=== PATIENT | female | born 1960 | race Caucasian/White ===

== ENCOUNTER → 2017-06-01 | Outpatient (CLI) | payer BC ==
[~2017-06-01] MED LIST: ABILIFY15 MG PO; ABILIFY5 MG PO; ADVAIR 250-501 EACH INH; ASPIRIN81 MG OP; BONIVA150 MG PO; CALCIUM 1,0001 EACH PO; CARAFATE1 GM PO; CINNAMON500 MG PO; CLARITIN10 MG PO; CYCLOBENZAPRINE5 MG PO; CYMBALTA60 MG PO; DEPAKOTE ER500 MG PO; DEPAKOTE250 MG PO; ELAVIL25 MG PO; FENOFIBRATE145 MG PO; FLAGYL250 MG PO; FUROSEMIDE80 MG PO; GABAPENTIN600 MG PO; GARLIC500 M1 PO; GLIPIZIDE ER2.5 MG PO; GRALISE600 MG PO; HUMALOG MI100 UNIT/4 SQ; HUMALOG100 UNIT/1 SC; HUMALOG100 UNITS/ SC; HUMALOG100 UNITS/ SQ; INVOKANA PO; KEFLEX500 MG PO; LANTUS 3ML100 UNITS/ SQ; LEVAQUIN500 MG PO; LEVEMIR100 UNIT/1 SQ; LEVOTHYROXINE25 MCG PO; LINZESS PO; MAXALT10 MG PO; MELATONIN300 MCG PO; METFORMIN HCL500 MG PO; MULTI-VITAMIN1 EACH PO; NEURONTIN300 MG PO; NORCO 10-325 T1 EACH PO; ONGLYZA5 MG PO; PANTOPRAZOLE SO40 MG PO; PRAVACHOL40 MG PO; PREMARIN0.625 MG PO; PROMETHAZINE HC25 M1 PO; PROPRANOLOL HCL10 MG PO; RELPAX40 MG PO; RIZATRIPTAN PO; SIMVASTATIN20 MG PO; SONATA10 MG PO; SPIRIVA18 MCG; SPIRONOLACTONE100 MG PO; SPIRONOLACTONE50 MG PO; TIZANIDINE HCL4 MG PO; TRAZODONE HCL150 MG PO; TRAZODONE HCL50 MG PO; VICODIN ES TAB1 EACH PO; VITAMIN E1000 UNI2 PO; WELLBUTRIN SR150 MG PO; WELLBUTRIN XL300 MG PO; WELLBUTRIN75 MG PO; Z.0.ANTIVERT12.5 MG PO; Z.0.BONIVA150 MG PO; Z.0.DEPAKOTE500 MG PO; Z.0.LASIX40 MG PO; Z.0.LEXAPRO20 MG PO; Z.0.LIPITOR40 MG PO; Z.0.NEURONTIN300 MG PO; Z.0.NEXIUM40 MG PO; Z.0.PREMARIN0.9 MG PO; Z.0.ULTRAM50 MG PO; Z.0.ZANAFLEX4 M1 PO; Z.1.KOMBIGLYZE XR1 E PO; ZOCOR20 MG PO; ZOFRAN ODT8 MG PO; [UNRECOGNIZED DRUG - OTHER] NS; [UNRECOGNIZED DRUG - OTHER] PO; [UNRECOGNIZED DRUG - OTHER] PO
--- NOTE | 2017-06-01 10:48 | Diagnostic Imaging Report ---
Examination: MRI SPINE LUMBAR WITHOUT CONTRAST History: Right groin area pain shooting down the right thigh and down the front of the right leg for the past 4-6 weeks. Comparison studies: X-ray of the lumbar spine performed November 09, 2014. Technique: Sagittal, coronal and axial T2 , sagittal T1 and STIR; axial spin density oblique. Findings: Number of lumbar vertebral bodies: Five. Alignment: Normal lordosis. No scoliosis. Soft tissues: No T2 hyperintense inflammatory changes. Posterior paraspinal soft tissues and muscles: No abnormality. Lower thoracic cord: Normal in signal and morphology. The tip of the conus is at T12-L1. Cauda equina: No masses. No arachnoiditis. Vertebrae: No fractures, infection or neoplasm. Degenerative changes: L1-L2: No abnormalities. L2-L3: No abnormalities. L3-L4: Mild bilateral facet arthropathy. No foraminal or canal stenosis. L4-L5: Diffuse systolic and mild bilateral facet arthropathy result in minimal canal stenosis. No foraminal stenosis. L5-S1: Mild bilateral facet arthropathy. No foraminal or canal stenosis. IMPRESSION: 1. Degenerative changes at L3-L4 through L5-S1 with minimal canal stenosis at L4-L5. 2. No foraminal narrowing. Signed by: Dr. Amara Painter M.D. on 06/01/2017 10:45 AM
== END ==
LOC: MRI 07:45
PROVIDERS: ATTEND Family Medicine
DX: M54.5 Low back pain (principal)
CPT/HCPCS: 72148

== ENCOUNTER 2017-09-19 19:39 | Emergency (ER) | payer MEDICARE ==
[~2017-09-19] VITALS: Ht 160 cm; Wt 85.3 kg
--- OUTSIDE RECORDS SUMMARY | 2017-09-19 19:43 | XMS REPORT ---
Author Author [facility] Address Unknown Phone Unavailable Care Team Providers Care Museum Educator Name Role Phone EUNICE SOLIMAN Unavailable Unavailable BRII SOLIMAN Unavailable Unavailable JONNY MOROCHO Unavailable Unavailable Problems This patient has no known problems. Allergies, Adverse Reactions, Alerts This patient has no known allergies or adverse reactions. Medications This patient has no known medications. Results Test Description Test Time Test Comments Text Results Atomic Results Result Comments MRI SPINE LUMBAR WO [place] [address] Patient Name: ROGER MOCTEZUMA V MR #: [id number] : 1960 Age/Sex: 57/F Req #: [id number] Adm Physician: Ordered by: EUNICE SOLIMAN DO Report #: [id number] Location: MRI Room/Bed: Procedure: [id number] MRI/MRI SPINE LUMBAR WO Exam Date: 06/01/17 Exam Time: 0820 REPORT STATUS: Signed Examination: MRI SPINE LUMBAR WITHOUT CONTRAST History: Right groin area pain shooting down the right thigh and down the front of the right leg for the past 4-6 weeks. Comparison studies: X-ray of the lumbar spine performed November 09, 2014. Technique: Sagittal, coronal and axial T2 , sagittal T1 and STIR; axial spin density oblique. Findings: Number of lumbar vertebral bodies: Five. Alignment: Normal lordosis. No scoliosis. Soft tissues: No T2 hyperintense inflammatory changes. Posterior paraspinal soft tissues and muscles: No abnormality. Lower thoracic cord: Normal in signal and morphology. The tip of the conus is at T12-L1. Cauda equina: No masses. No arachnoiditis. Vertebrae: No fractures, infection or neoplasm. Degenerative changes: L1-L2: No abnormalities. L2-L3: No abnormalities. L3-L4: Mild bilateral facet arthropathy. No foraminal or canal stenosis. L4-L5: Diffuse systolic and mild bilateral facet arthropathy result in minimal canal stenosis. No foraminal stenosis. L5-S1: Mild bilateral facet arthropathy. No foraminal or canal stenosis. IMPRESSION: 1. Degenerative changes at L3-L4 through L5-S1 with minimal canal stenosis at L4- L5. 2. No foraminal narrowing. Signed by: Dr. Amara Painter M.D. on 06/01/2017 10:45 AM Dictated By: AMARA FLORES MD 1045 Transcribed By: CALEB on 06/01/17 1045 COPY TO: EUNICE SOLIMAN DO CT ABDOMEN/PELVIS W [place] [address] Patient Name: ROGER MOCTEZUMA V MR #: [id number] : 1960 Age/Sex: 57/F Req #: [id number] Adm Physician: Ordered by: EUNICE SOLIMAN DO Report #: [id number] Location: CT Room/Bed: Procedure: [id number] CT/CT ABDOMEN/PELVIS W Exam Date: 05/17/17 Exam Time : 0940 REPORT STATUS: Signed PROCEDURE: CT ABDOMEN AND PELVIS WITH CONTRAST TECHNIQUE: The abdomen and pelvis were scanned utilizing a multidetector helical scanner from the diaphragm to the lesser trochanter after the IV administration of 100 cc of Isovue 370 and the oral administration of Gastroview and water. Coronal and sagittal multiplanar reformations were obtained. COMPARISON: None. INDICATIONS: RIGHT LOWER QUAD PAIN FINDINGS: LOWER THORAX: Normal. HEPATOBILIARY: No focal hepatic lesions. No biliary ductal dilatation. Cholecystectomy. SPLEEN: No splenomegaly. PANCREAS: No focal masses or ductal dilatation. ADRENALS: No adrenal nodules. KIDNEYS/URETERS: No hydronephrosis, stones, or solid mass lesions. PELVIC ORGANS/BLADDER: Unremarkable. PERITONEUM / RETROPERITONEUM: No free air or fluid. LYMPH NODES: No lymphadenopathy. VESSELS: Unremarkable. GI TRACT: No distention or wall thickening. No appendix is visualized. Moderate amount of retained feces in the intraluminal evaluation of the colon. BONES AND SOFT TISSUES: Unremarkable. Degenerative changes of the lumbar spine. IMPRESSION: No acute abnormality of the abdomen and pelvis. Dictated by : Damaris Myles M.D. on 05/17/2017 at 12:44 Electronically approved by: Damaris Myles M.D. on 05/17/2017 at 12:44 Dictated By: DAMARIS MYLES MD 1244 Transcribed By: PANTERA on 05/17/17 1244 COPY TO: EUNICE SOLIMAN DO MRI KNEE LEFT WO [place] [address] Patient Name: ROGER MOCTEZUMA V MR #: [id number] : 1960 Age/Sex: 56/F Req #: [id number] Adm Physician: Ordered by: SOLIMAN ANDREW DO Report #: [id number] Location: MRI Room/Bed: Procedure: [id number] MRI/MRI KNEE LEFT WO Exam Date: 02/24/17 Exam Time: 910 REPORT STATUS: Signed Left knee MRI without contrast. History : Knee pain. Fall. Trauma. Anterior cruciate ligament tear. Comparison: None. Technique: Multiplanar multi-sequence MRI of the knee without contrast. Findings: Medial compartment: No meniscal tear, cartilage abnormality, or MCL tear. Lateral compartment: No meniscal tear or cartilage abnormality. The LCL complex is normal. There is mild bone marrow edema in the lateral tibial plateau likely due to a contusion. There is a nondisplaced fracture through the proximal fibula with associated bone marrow edema and adjacent soft tissue edema. This is best seen on coronal series 5 image 16 and sagittal series 3 image 9. Intercondylar notch: The ACL and PCL are intact. Patellofemoral compartment: No chondromalacia or patellar dislocation. Extensor mechanism: The quadriceps and patellar tendons are normal. Other findings: There is a joint effusion and synovitis. There is no acute fracture, subluxation or avascular necrosis. IMPRESSION: Nondisplaced fracture through the proximal fibula with associated bone marrow edema and adjacent soft tissue edema. There is mild bone marrow edema in the lateral tibial plateau likely due to a contusion. No meniscal tear, collateral ligament tear or cruciate ligament tear. Signed by: Dr. Lj Aponte M.D. on 02/24/2017 10:38 AM Dictated By: LJ APONTE MD, MD 1038 Transcribed By: CALEB on 02/24/17 1038 COPY TO: BRII SOLIMAN DO CT PELVIS WO [place] [address] Patient Name: ROGER MOCTEZUMA V MR #: [id number] : 1960 Age/Sex: 56/F Req #: [id number] Adm Physician: Ordered by: JONNY MOROCHO MD Report #: [id number] Location: CT Room/Bed: Procedure: [id number] CT/ CT PELVIS WO Exam Date: 01/27/17 Exam Time: 1327 REPORT STATUS: Signed PROCEDURE: CT PELVIS WITHOUT CONTRAST COMPARISON: CT abdomen and pelvis 02/24/2016. INDICATIONS: LOWER BACK, SI JOINT PAIN TECHNIQUE: Multidetector imaging of was performed of the pelvis from the pelvic inlet to the pubic symphysis. No intravenous contrast was administered. Coronal and sagittal multiplanar reformations were obtained. FINDINGS: The visualized portions of the small bowel colon are unremarkable. No appendix is visualized. Moderate amount of retained feces limits intraluminal evaluation of the colon. The urinary bladder is normal. Hysterectomy. No ovaries are visualized. Minimal atherosclerotic calcifications within the iliac distribution. The No free fluid or drainable fluid collection. No pneumoperitoneum. Minimal degenerative changes of the lower lumbar spine. CONCLUSION: No acute abnormality of the pelvis. Dictated by: Damaris Myles M.D. on 01/27/2017 at 15:05 Electronically approved by: Damaris Myles M.D. on 01/27/2017 at 15:05 Dictated By: DAMARIS MYLES MD 1505 Transcribed By: PANTERA on 01/27/17 1505 COPY TO: JONNY MOROCHO MD
[2017-09-19] MEDS ORDERED: KETOROLAC TROMETHAMINE 30 MG/ML VIAL IV STA (19:49)
[2017-09-19] MEDS ORDERED: DIPHENHYDRAMINE HCL INJ 50 MG/ML VIAL IV ONE (20:00)
[2017-09-19] MEDS ORDERED: KETOROLAC TROMETHAMINE 30 MG/ML VIAL IV SCH (20:00)
[2017-09-19] MEDS ORDERED: METOCLOPRAMIDE HCL 10 MG/2ML VIAL IV SCH (20:00)
[2017-09-19] MEDS ORDERED: SODIUM CHLORIDE 0.9% 1000ML 1,000 ML IV ONE (20:00)
[2017-09-19] MEDS ORDERED: ACETAMIN/BUTALBITAL/CAFFEINE TAB PO ONE (20:30)
== END 2017-09-19 21:52 | disposition home or self-care (01) ==
LOC: ER 19:39
DX: G43.909 Migraine, unspecified, not intractable, without status migrainosus (principal); E11.9 Type 2 diabetes mellitus without complications; E03.9 Hypothyroidism, unspecified; E78.5 Hyperlipidemia, unspecified; F32.9 Major depressive disorder, single episode, unspecified
CPT/HCPCS: 36415; 82948; 99283; J1200; J1885; J2765; J7030

== ENCOUNTER → 2017-11-12 | Outpatient (CLI) | payer MEDICARE ==
--- NOTE | 2017-11-12 08:19 | Diagnostic Imaging Report ---
PROCEDURE:US LIVER COMPARISON:CT abdomen and pelvis 05/17/2017. INDICATIONS:Fatty Liver TECHNIQUE: Salomon-scale and color doppler transverse and longitudinal images of the right upper quadrant of the abdomen were obtained. FINDINGS: Liver: 18.2 cm in right mid-clavicular line. Normal parenchymal echogenicity. No masses. Main portal vein: 1.2 cm in caliber. Hepatopedal flow. Gallbladder: Surgically removed. Common Bile Duct: 0.6 cm in caliber Right kidney: 10.8 cm in length. Normal renal cortical echogenicity. No solid masses or hydronephrosis. Pancreas: Poorly visualized secondary to overlying bowel gas. Inferior vena cava: Patent Aorta: Non-aneurysmal Ascites: None in the right upper quadrant of the abdomen. CONCLUSION: Hepatomegaly with normal hepatic parenchymal echogenicity. Status post cholecystectomy. Dictated by: Zander Lindsey M.D. on 11/12/2017 at 8:22 Electronically approved by: Zander Lindsey M.D. on 11/12/2017 at 8:22
--- NOTE | 2017-11-15 11:26 | Diagnostic Imaging Report ---
TECHNIQUE: Magnetic resonance imaging of the RIGHT HIP was performed WITHOUT injected contrast. HISTORY: Osteoarthritis COMPARISON: Bone windows from CT the pelvis February 24, 2016 FINDINGS: Bone: No focal or infiltrative bone marrow replacing abnormality. Evolving chronic avascular necrosis of the right femoral head with associated mild subchondral collapse, mild bone marrow edema, and secondary degenerative changes. A 1.6 cm cyst at the lateral femoral head neck junction. Femoroacetabular Joint: Acetabular labrum: Mild to moderate degenerative changes of the anterosuperior labrum. Articular Cartilage: Low to intermediate grade erosion of the acetabular weightbearing cartilage. Muscle and tendons: The visualized tendons appear intact. Soft tissues: Otherwise, unremarkable. Other: Moderate degenerative changes of the pubic symphysis. 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 Signed by: Dr. Lan Thorne D.O., M.M.M. on 11/15/2017 11:23 AM
== END ==
LOC: US 07:27
DX: M16.11 Unilateral primary osteoarthritis, right hip (principal); K76.0 Fatty (change of) liver, not elsewhere classified
CPT/HCPCS: 76705

== ENCOUNTER 2017-12-27 06:22 | Inpatient (IN) | payer MEDICARE ==
[2017-12-24 11:49] LABS: ANION GAP 15.5 mmol/L (8-16); CALCIUM 10.3 mg/dL (8.4-10.2); CREATININE, SERUM 0.98 mg/dL (0.57-1.11); POTASSIUM 4.5 mmol/L (3.5-5.1)
[2017-12-24 11:50] LABS: HEMATOCRIT 38.9 % (34.2-44.1); HEMOGLOBIN 12.2 g/dL (12.0-16.0); MEAN CORPUSCULAR HEMOGLOBIN 30.7 pg (28-32); MEAN CORPUSCULAR VOLUME 97.7 fL (81-99); RED BLOOD COUNT 3.98 x10e6/uL (3.6-5.1)
[2017-12-24 11:51] LABS: BASOPHILS % 0.5 % (0.0-1.0); EOSINOPHILS # (AUTO) 0.1 (0.0-0.4); EOSINOPHILS % 1.9 % (0.0-6.0); LYMPHOCYTES # (AUTO) 2.2 (1.0-3.2); LYMPHOCYTES % 33.9 % (18.0-39.1); MEAN CORPUSCULAR HGB CONC 31.4 g/dL (31-35); MONOCYTES # (AUTO) 0.4 (0.2-0.8); MONOCYTES % 6.9 % (4.4-11.3); NEUTROPHILS # (AUTO) 3.6 (2.1-6.9); NEUTROPHILS % 56.2 % (38.7-80.0); PLATELET COUNT 307 x10e3/uL (140-360)
[~2017-12-27] VITALS: Ht 160 cm; Wt 89.8 kg
[~2017-12-27 06:22] MED LIST changes: +CALCIUM MG ZINC PO; +FERROUS SULFAT324 MG PO; +GARLIC1000 MG PO; +MELATONIN3 MG PO; +SENNA8.6 MG PO; +VITAMIN B-125000 MCG PEG; +VITAMIN E400 UNIT PO
[2017-12-27] MEDS ORDERED: MUPIROCIN 2% OINT 22 GM TUBE ONE ×2 (07:21→07:51)
[2017-12-27] MEDS ORDERED: TRANEXAMIC ACID 1,000 MG/10 ML ML ONE ×2 (07:21→07:51)
[2017-12-27] MEDS ORDERED: BACITRACIN 50,000 UNIT VIAL ONE ×2 (07:21→07:52)
[2017-12-27] MEDS ORDERED: ROPIVACAINE 246.25 MG, EPINEPHRINE HCL 1:1000 0.5 MG, CLONIDINE HCL 0.08 MG, KETOROLAC ... INJ ONE ×5 (07:30)
[2017-12-27] MEDS ORDERED: DEXAMETHASONE SOD PHOS 10 MG/1 ML VIAL ONE (07:38)
[2017-12-27] MEDS ORDERED: CEFAZOLIN SOD 2 GM/D5W 50ML 50 ML IV ONE (07:38)
[2017-12-27] MEDS ORDERED: GABAPENTIN 300 MG CAP ONE (07:38)
[2017-12-27] MEDS ORDERED: CELECOXIB 200 MG CAP ONE (07:38)
[2017-12-27] MEDS ORDERED: INSULIN REGULAR, HUMAN 100 UNIT/1 ML 3ML VIAL ONE (07:59)
[2017-12-27] MEDS ORDERED: MORPHINE SULFATE/PF 1 MG/1 ML 10ML VIAL ONE (08:10)
[2017-12-27] MEDS ORDERED: BUPIVACAINE 7.5MG/ML /DEXTROSE 82.5MG/ML 2 ML AMP INJ ONE (08:11)
[2017-12-27] MEDS ORDERED: PROMETHAZINE HCL (IM) 25 MG/ML VIAL IM PRN (09:45)
[2017-12-27] MEDS ORDERED: DOCUSATE SODIUM 100 MG CAP PO PRN (09:45)
[2017-12-27] MEDS ORDERED: KETOROLAC TROMETHAMINE 30 MG/ML VIAL IV PRN (09:45)
[2017-12-27] MEDS ORDERED: ONDANSETRON HCL INJ 2 MG/ML VIAL IV PRN (09:45)
[2017-12-27] MEDS ORDERED: ACETAMINOPHEN 650 MG SUPP PR PRN (09:45)
--- NOTE | 2017-12-27 10:05 | Diagnostic Imaging Report ---
PROCEDURE:X-RAY PELVIS, AP VIEW COMPARISON:None. INDICATIONS:POST OP RIGHT HIP TODAY FINDINGS: Status post right total hip arthroplasty with acetabular and femoral components in anatomic alignment. Right thigh kaleigh and air adjacent to the operative site related to same day surgery. No evidence of fracture or dislocation. The bones are well-mineralized. AP radiograph of the pelvis demonstrates moderate left hip, pubic symphysis, lower lumbar spine, and bilateral sacroiliac joint degenerative changes. The soft-tissues are unremarkable. CONCLUSION: Status post right total hip arthroplasty with expected post operative findings. Dictated by: BRIANDA BOONE M.D. on 12/27/2017 at 10:09 Electronically approved by: BRIANDA BOONE M.D. on 12/27/2017 at 10:09
[2017-12-27] MEDS: SUCRALFATE 1 GM TAB PO SCH ×3 (12:09→21:58)
[2017-12-27] MEDS: SODIUM CHLORIDE 0.9% 1000ML 1,000 ML IV SCH ×2 (12:09→19:31)
[2017-12-27] MEDS: ACETAMINOPHEN 1000 MG/100 ML IV SCH ×2 (12:09→17:19)
[2017-12-27] MEDS: INSULIN LISPRO 100 UNIT/1 ML 3ML VIAL SQ SCH ×2 (12:09→17:07)
[2017-12-27 12:13] VITALS: BP 103/50
[2017-12-27] MEDS: DIPHENHYDRAMINE HCL INJ 50 MG/ML VIAL IM/IV PRN ×2 (12:17→13:45)
[2017-12-27 12:18] VITALS: BP 103/50
--- NOTE | 2017-12-27 12:56 | Operative Report ---
DATE OF PROCEDURE: December 27, 2017 DIRECTOR NURSING SERVICE: Richmond Mitchell PA-C The patient was brought to the operating room for induction of anesthesia. Throughout this case, my PA's assistance was necessary for retraction of soft tissue and positioning of the extremity. This allows for efficient and technically successful execution of the operation and is considered medically necessary. PREOPERATIVE DIAGNOSIS: Avascular necrosis, right hip. POSTOPERATIVE DIAGNOSIS: Avascular necrosis, right hip. PROCEDURE: Right total hip arthroplasty. INDICATIONS: The patient is a 57-year-old lady with osteonecrosis of her right femoral head. She has evidence of subchondral collapse. She has complaints of severe pain. She would like to proceed with a right total hip replacement. The risks and benefits have been discussed. She states she understands and wishes to proceed. DESCRIPTION OF PROCEDURE: The patient was brought to the operating room and given a spinal anesthetic. She received prophylactic antibiotics and tranexamic acid in the holding area. She was positioned in the left lateral decubitus position. Her right hip was prepped and draped in a sterile manner. A preoperative time out was performed. A posterior approach was made to the right hip. Abundant subcutaneous adipose tissue was encountered. Hemostasis was obtained with electrocautery. A deep Charnley retractor was placed. The posterior capsule was carefully exposed and released. Additional hemostasis was obtained with electrocautery. The hip was dislocated, and an oscillating saw was used to resect the femoral head. Subchondral collapse was noted. Acetabular retractors were carefully placed. The true floor of the acetabulum was established with a 46-mm reamer. Labral remnants had been excised. The socket was sequentially reamed up to 51 mm. This accomplished bleeding hemispherical cancellous bone. A Maile [employer]omet OsseoTi socket with a 52 mm outer diameter was chosen. The hip was thoroughly irrigated with a shower-tip pulsatile lavage prior to impacting the socket. Nice secure fixation was obtained. Fixation was augmented with a single 25-mm cancellous screw placed into the ilium. A highly crosslinked polyethylene liner with a 36 mm inner diameter was then seated into place. Care was taken to make sure that there was no evidence of soft-tissue interposition. A portion of a 100-mL premixed pericapsular RUSSELL injection was placed around the capsular tissue. The socket was packed with moistly soaked lap sponge, and attention was directed towards the proximal femur. A box-cutting osteotome and taper pin reamer were used to establish entry into the femoral canal. The Taperloc broaches were then impacted. A size 12 stem had good canal fill and rotational stability for trial reductions. A standard 36-mm head with a standard neck provided excellent stability, faith of limb length and soft-tissue balancing. The trial implants were removed. The hip was further irrigated with a pulsatile lavage. The remainder of the pericapsular injection was placed. The implants were seated, and a final reduction was performed. A standard 36-mm head and standard neck were seated onto the stem. The stem was clean and dry at the time of seating. The posterior capsule was repaired with 2 interrupted #2 Ethibond stitches in a [id number] fashion. The gluteal fascia and tensor fascia were closed with #2 Ethibond. The skin was closed with subcuticular Vicryl and kaleigh. Estimated blood loss was 75 mL. At the end of the procedure, all needle and sponge counts were correct. Job#: [id number]
[2017-12-27] MEDS ORDERED: CEFAZOLIN SOD 1 GM/D5W 50ML 50 ML IV SCH (14:00)
[2017-12-27] MEDS ORDERED: GABAPENTIN 400 MG PO SCH (15:00)
[2017-12-27] MEDS: GABAPENTIN 400 MG CAP PO SCH ×2 (15:15→21:58)
[2017-12-27 16:31] VITALS: BP 123/59
[2017-12-27] MEDS: CEFAZOLIN SOD 1 GM VIAL IV SCH (16:41)
[2017-12-27] MEDS ORDERED: NON-FORMULARY MEDICATION (Duloxetine Hcl (Cymbalta) 60 MG) PO SCH (17:00)
[2017-12-27] MEDS ORDERED: CELECOXIB 100 MG CAP PO SCH (17:00)
[2017-12-27] MEDS: METFORMIN HCL 500 MG TAB PO SCH (17:19)
[2017-12-27] MEDS: DULOXETINE HCL 30 MG DELAYED RELEASE PO SCH (17:19)
[2017-12-27] MEDS: ASPIRIN 325 MG TAB PO SCH (17:19)
[2017-12-27] MEDS: CELECOXIB 200 MG CAP PO SCH (17:19)
[2017-12-27] MEDS ORDERED: PROPOFOL IV EMULSION 10 MG/ML 20 ML VIAL ONE (17:48)
[2017-12-27] MEDS ORDERED: LIDOCAINE HCL 2% LOCAL INJ 5 ML SDV VIAL INJ ONE (17:48)
[2017-12-27] MEDS ORDERED: EPHEDRINE SULFATE INJ 50 MG/10 ML SYR ONE (17:48)
[2017-12-27] MEDS ORDERED: ONDANSETRON HCL INJ 2 MG/ML VIAL ONE (17:48)
[2017-12-27] MEDS ORDERED: FENTANYL CITRATE/PF 100MCG/2 ML INJ ONE (17:58)
[2017-12-27] MEDS ORDERED: MIDAZOLAM HCL 2 MG/2 ML VIAL ONE (17:58)
[2017-12-27] MEDS ORDERED: HYDROXYZINE HCL 25 MG TAB PO PRN (18:15)
[2017-12-27 20:31] VITALS: BP 101/49
[2017-12-27] MEDS ORDERED: SIMVASTATIN 20 MG TAB PO SCH (21:00)
[2017-12-27] MEDS ORDERED: SENNOSIDES 8.6 MG TAB PO SCH (21:00)
[2017-12-27] MEDS ORDERED: ZOLPIDEM TARTRATE 5 MG TAB PO PRN (21:00)
[2017-12-27] MEDS ORDERED: FENOFIBRATE 145 MG TAB PO SCH (21:00)
[2017-12-27] MEDS ORDERED: TRAZODONE HCL 50 MG TAB PO SCH (21:00)
[2017-12-27] MEDS ORDERED: NON-FORMULARY MEDICATION (Insulin Detemir (Levemir) 20 UNITS) SQ SCH (21:00)
[2017-12-27] MEDS ORDERED: INSULIN DETEMIR 100 UNIT/ML PEN SQ SCH (21:00)
[2017-12-27] MEDS ORDERED: TRAZODONE HCL 300 MG PO SCH (21:00)
[2017-12-27] MEDS ORDERED: MELATONIN 3 MG TAB PO SCH (21:00)
[2017-12-27] MEDS ORDERED: MELATONIN 5 MG TABLET PO SCH (21:00)
[2017-12-27] MEDS ORDERED: SIMVASTATIN 40 MG TAB PO SCH (21:00)
[2017-12-27] MEDS ORDERED: DIVALPROEX SODIUM 250 MG TAB...DR PO SCH (21:00)
[2017-12-28] VITALS: BP 97/51
[2017-12-28] MEDS: CEFAZOLIN SOD 1 GM VIAL IV SCH ×2 (00:38→08:29)
[2017-12-28 04:00] VITALS: BP 111/56
[2017-12-28] MEDS: HYDROCODONE/APAP 7.5MG-325MG 1 EA TAB PO PRN ×2 (05:14→12:39)
[2017-12-28] MEDS: ACETAMINOPHEN 1000 MG/100 ML IV SCH ×2 (05:14)
[2017-12-28] MEDS: SODIUM CHLORIDE 0.9% 1000ML 1,000 ML IV SCH ×2 (05:31→15:27)
[2017-12-28 05:51] LABS: HEMATOCRIT 32.5 % (34.2-44.1); HEMOGLOBIN 10.2 g/dL (12.0-16.0)
[2017-12-28] MEDS ORDERED: LEVOTHYROXINE SODIUM 25 MCG TABLET PO SCH ×2 (06:00→09:00)
[2017-12-28] MEDS ORDERED: PANTOPRAZOLE SOD 40 MG TABEC PO SCH (07:30)
[2017-12-28] MEDS: SUCRALFATE 1 GM TAB PO SCH ×2 (07:57→11:44)
[2017-12-28 08:27] VITALS: BP 105/55
[2017-12-28] MEDS: CELECOXIB 200 MG CAP PO SCH (08:29)
[2017-12-28] MEDS: DULOXETINE HCL 30 MG DELAYED RELEASE PO SCH (08:29)
[2017-12-28] MEDS: METFORMIN HCL 500 MG TAB PO SCH (08:29)
[2017-12-28] MEDS: ASPIRIN 325 MG TAB PO SCH ×2 (08:29→15:57)
[2017-12-28] MEDS: GABAPENTIN 400 MG CAP PO SCH ×2 (08:29→14:54)
[2017-12-28] MEDS: HYDROCODONE/APAP 5MG-325MG TAB PO PRN ×2 (08:29→15:57)
[2017-12-28] MEDS: INSULIN LISPRO 100 UNIT/1 ML 3ML VIAL SQ SCH ×2 (08:32→11:19)
[2017-12-28 08:36] VITALS: BP 105/55
[2017-12-28] MEDS ORDERED: FUROSEMIDE 40 MG TAB PO SCH (09:00)
[2017-12-28] MEDS ORDERED: NON-FORMULARY MEDICATION (Aripiprazole (Abilify) 15 MG) PO SCH (09:00)
[2017-12-28] MEDS ORDERED: NON-FORMULARY MEDICATION (Furosemide 40 MG) PO SCH (09:00)
[2017-12-28] MEDS ORDERED: ARIPIPRAZOLE 5 MG TABLET PO SCH (09:00)
[2017-12-28] MEDS ORDERED: BUPROPION HCL SR 150 MG TAB PO SCH (09:00)
[2017-12-28] MEDS ORDERED: SPIRONOLACTONE 25 MG TAB PO SCH (09:00)
[2017-12-28] MEDS ORDERED: MULTIVITAMINS/MINERALS TAB PO SCH (09:00)
[2017-12-28] MEDS ORDERED: NON-FORMULARY MEDICATION (Spironolactone 100 MG) PO SCH (09:00)
[2017-12-28] MEDS ORDERED: ACETAMINOPHEN 1000 MG/100 ML IV PRN (09:45)
[2017-12-28 12:24] VITALS: BP 111/53
== END 2017-12-28 15:58 | disposition home health service (06) | DRG 470 ==
LOC: OR 06:22 → PACU V 09:33 → MED/SURG 10:43
PROVIDERS: ADMIT Specialist; ATTEND Specialist
PROC: 0SR90J9 Replacement of Right Hip Joint with Synthetic Substitute, Cemented, Open Approach (ICD-10-PCS; principal; 2017-12-27 09:00)
DX: M87.351 Other secondary osteonecrosis, right femur (principal); E11.9 Type 2 diabetes mellitus without complications; Z87.891 Personal history of nicotine dependence; L29.9 Pruritus, unspecified; D64.9 Anemia, unspecified
CPT/HCPCS: 36415; 72170; 80048; 82948; 85014; 85018; 85025; 86850; 86900; 86920; 93005; J0171; J0690; J1100; J1200; J1885; J2001; J2250; J2405; J2795; J3410; J7030

== ENCOUNTER 2017-12-30 07:13 | Emergency (ER) | payer MEDICARE ==
[~2017-12-30] VITALS: Ht 160 cm; Wt 89.8 kg
[2017-12-30] MEDS ORDERED: KETOROLAC TROMETHAMINE 30 MG/ML VIAL IV STA (07:40)
[2017-12-30] MEDS ORDERED: ONDANSETRON HCL INJ 2 MG/ML VIAL IV STA (07:40)
[2017-12-30] MEDS ORDERED: SODIUM CHLORIDE 0.9% 1000ML 1,000 ML IV ONE (07:45)
[2017-12-30] MEDS ORDERED: MORPHINE SULFATE INJ 4 MG/ML INJ IV ONE (07:45)
[2017-12-30 08:43] LABS: BASOPHILS % 0.5 % (0.0-1.0); EOSINOPHILS # (AUTO) 0.1 (0.0-0.4); EOSINOPHILS % 0.9 % (0.0-6.0); HEMATOCRIT 32.5 % (34.2-44.1); HEMOGLOBIN 10.6 g/dL (12.0-16.0); LYMPHOCYTES # (AUTO) 1.2 (1.0-3.2); LYMPHOCYTES % 14.9 % (18.0-39.1); MEAN CORPUSCULAR HEMOGLOBIN 30.2 pg (28-32); MEAN CORPUSCULAR HGB CONC 32.6 g/dL (31-35); MEAN CORPUSCULAR VOLUME 92.6 fL (81-99); MONOCYTES # (AUTO) 0.5 (0.2-0.8); MONOCYTES % 5.8 % (4.4-11.3); NEUTROPHILS # (AUTO) 5.9 (2.1-6.9); NEUTROPHILS % 76.3 % (38.7-80.0); PLATELET COUNT 287 x10e3/uL (140-360); RED BLOOD COUNT 3.51 x10e6/uL (3.6-5.1)
--- NOTE | 2017-12-30 08:53 | Diagnostic Imaging Report ---
PROCEDURE:X-RAY ABDOMEN - KUB COMPARISON:Pelvic radiograph 12/27/2017.. INDICATIONS:FALL FINDINGS: The bowel gas pattern shows no dilated, air-filled loops of bowel. Large amount of fecal material throughout the colon. No mass effect or organomegaly. Midepigastric and right upper quadrant surgical clips. Recent total right hip arthroplasty partially visualized and intact, with overlying skin kaleigh. CONCLUSION: Nonobstructive bowel gas pattern. Large amount of fecal material within the colon. Correlate for constipation. Partially visualized right hip prosthesis without acute abnormality. Dictated by: Zander Lindsey M.D. on 12/30/2017 at 8:58 Electronically approved by: Zander Lindsey M.D. on 12/30/2017 at 8:58
--- NOTE | 2017-12-30 08:55 | Diagnostic Imaging Report ---
PROCEDURE:HIP RIGHT 2-3 VW (+/- PELVIS) INDICATION:Status post fall COMPARISON:Pelvic radiograph 12/27/2017. FINDINGS: Postsurgical changes of recent total right hip arthroplasty with intact acetabular cup and femoral stem components. Interval decrease in subcutaneous gas. Stable position of overlying skin kaleigh. No periprosthetic displaced fracture. CONCLUSION: Postsurgical changes of recent total right hip arthroplasty without acute osseous abnormality. Dictated by: Zander Lindsey M.D. on 12/30/2017 at 9:00 Electronically approved by: Zander Lindsey M.D. on 12/30/2017 at 9:00
[2017-12-30 09:00] LABS: ALANINE AMINOTRANSFERASE 63 IU/L (0-55); ALBUMIN 3.1 g/dL (3.5-5.0); ALBUMIN/GLOBULIN RATIO 0.9 (0.8-2.0); ALKALINE PHOSPHATASE 62 IU/L (40-150); ANION GAP 17.1 mmol/L (8-16); BLOOD UREA NITROGEN 15 mg/dL (7-26); BUN/CREATININE RATIO 16 (6-25); CALCIUM 9.6 mg/dL (8.4-10.2); CARBON DIOXIDE 28 mmol/L (22-29); CHLORIDE 95 mmol/L (98-107); CREATININE, SERUM 0.92 mg/dL (0.57-1.11); EST GLOMERULAR FILTRATION RATE > 60 ML/MIN (60-); GLUCOSE 344 mg/dL (74-118); POTASSIUM 4.1 mmol/L (3.5-5.1); SODIUM 136 mmol/L (136-145)
[2017-12-30 10:00] LABS: BILIRUBIN,URINE NEGATIVE (NEGATIVE); CLARITY,URINE CLEAR (CLEAR); COLOR,URINE YELLOW (YELLOW); KETONES,URINE 2+ (NEGATIVE); LEUKOCYTE ESTERASE ,URINE NEGATIVE (NEGATIVE); NITRITE,URINE NEGATIVE (NEGATIVE); PROTEIN,URINE DIPSTICK NEGATIVE (NEGATIVE); URINE UROBILINOGEN 0.2 mg/dL (0.2 - 1)
[2017-12-30 10:12] LABS: BACTERIA,URINE FEW /HPF; RBC,URINE 21-50 /HPF (0-5)
[2017-12-30 10:13] LABS: EPITHELIAL CELLS,URINE RARE /LPF
[2017-12-30] MEDS ORDERED: LACTULOSE SYRUP 20 GM/30 ML UDC PO ONE (11:15)
[2017-12-30] MEDS ORDERED: CIPROFLOXACIN 500 MG TAB PO ONE (11:35)
[2017-12-30] MEDS ORDERED: KETOROLAC TROMETHAMINE 30 MG/ML VIAL IV ONE (11:35)
[2017-12-30] MEDS ORDERED: LACTULOSE SYRUP 20 GM/30 ML UDC ONE (12:23)
[2017-12-30] MEDS ORDERED: KETOROLAC TROMETHAMINE 30 MG/ML VIAL ONE (12:23)
[2017-12-30] MEDS ORDERED: CIPROFLOXACIN 500 MG TAB ONE (12:24)
[2017-12-30 13:05] VITALS: BP 98/72
== END 2017-12-30 13:03 | disposition home or self-care (01) ==
LOC: ER 07:13
DX: M25.551 Pain in right hip (principal); S70.01XA Contusion of right hip, initial encounter; W18.11XA Fall from or off toilet without subsequent striking against object, initial encounter; Y92.002 Bathroom of unspecified non-institutional (private) residence as the place of occurrence of the external cause; K59.00 Constipation, unspecified; Z96.641 Presence of right artificial hip joint
CPT/HCPCS: 36415; 73502; 74018; 80053; 81001; 85025; 99284; J1885; J2270; J2405; J7030

== ENCOUNTER 2018-08-01 18:11 | Emergency (ER) | payer MEDICARE, OTHER ==
[~2018-08-01] VITALS: Ht 160 cm; Wt 82.6 kg
--- OUTSIDE RECORDS SUMMARY | 2018-08-01 18:16 | XMS REPORT | Continuity of Care Document ---
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 The facets are intact. There is no spinal canal stenosis or neural foraminal narrowing. C7-T1: No significant disc bulge or protrusion is seen. The facets are intact. There is no spinal canal stenosis or neural foraminal narrowing. IMPRESSION: 1. Mild degenerative disc disease at C5-C6 without spinal canal stenosis or neural foraminal narrowing. SL: [id number] 07/27/2016 - - Read by: Awais Jeffers MD Dictated Date/time: 07/27/16 09:38 Electronically Signed by: Awais Jeffers MD 07/27/16 09:40 FINAL REPORT [facility] ELECTROLYTES AGAP 11.8 meq/L 10.0 - 20.0 04/18/2015 [facility] ELECTROLYTES eGFR 63 mL/min/1.73m2 04/18/2015 Result Comment: The eGFR is calculated using the CKD-EPI formula. In most young, healthy individuals the eGFR will be >90 mL/min/1.73m2. The eGFR declines with age. An eGFR of 60-89 may be normal in some populations, particularly the elderly, for whom the CKD-EPI formula has not been extensively validated. Use of the eGFR is not recommended in the following populations: Individuals with unstable creatinine concentrations, including patients and those with serious co-morbid conditions. Patients with extremes in muscle mass or diet. The data above are obtained from the National Kidney Disease Education Program (NKDEP) which additionally recommends that when the eGFR is used in patients with extremes of body mass index for purposes of drug dosing, the eGFR should be multiplied by the estimated BMI. [facility] ELECTROLYTES Creatinine Lvl 1.00 mg/dL 0.50 - 1.40 04/18/2015 [facility] ELECTROLYTES CO2 31 meq/L 24 - 32 04/18/2015 [facility] ELECTROLYTES Chloride Lvl 101 meq/L 95 - 109 04/18/2015 [facility] ELECTROLYTES Calcium Lvl 9.6 mg/dL 8.5 - 10.5 04/18/2015 [facility] ELECTROLYTES Sodium Lvl 139 meq/L 135 - 145 04/18/2015 [facility] ELECTROLYTES Potassium Lvl 4.8 meq/L 3.5 - 5.1 04/18/2015 [facility] ELECTROLYTES BUN 11 mg/dL 7 - 22 04/18/2015 [facility] ELECTROLYTES Glucose Lvl 171 mg/dL 70 - 99 04/18/2015 [facility] HEMATOLOGY Eosinophils 1.2 % 0.0 - 4.0 04/18/2015 [facility] HEMATOLOGY Segs-Bands # 4.6 K/CMM 1.5 - 8.1 04/18/2015 [facility] HEMATOLOGY Basophils 1.0 % 0.0 - 1.0 04/18/2015 [facility] HEMATOLOGY Lymphocytes # 2.7 K/CMM 1.0 - 5.5 04/18/2015 [facility] HEMATOLOGY Eosinophils # 0.1 K/CMM 0.0 - 0.5 04/18/2015 [facility] HEMATOLOGY Monocytes # 0.6 K/CMM 0.0 - 0.8 04/18/2015 [facility] HEMATOLOGY Basophils # 0.1 K/CMM 0.0 - 0.2 04/18/2015 [facility] Monocytes 7.5 % 2.0 - 12.0 04/18/2015 [facility] Segs 56.9 % 45.0 - 75.0 04/18/2015 [facility] Lymphocytes 33.4 % 20.0 - 40.0 04/18/2015 [facility] MPV 8.7 fL 7.4 - 10.4 04/18/2015 [facility] Platelet 330 K/CMM 133 - 450 04/18/2015 [facility] MCHC 31.5 g/dL 32.0 - 36.0 04/18/2015 [facility] RDW 14.1 % 11.5 - 14.5 04/18/2015 [facility] MCV 96.3 fL 80.0 - 98.0 04/18/2015 [facility] MCH 30.4 pg 27.0 - 31.0 04/18/2015 [facility] Hct 48.9 % 36.0 - 48.0 04/18/2015 [facility] Hgb 15.4 g/dL 12.0 - 16.0 04/18/2015 [facility] RBC 5.08 M/CMM 4.20 - 5.40 04/18/2015 [facility] WBC 8.1 K/CMM 3.7 - 10.4 04/18/2015 [facility] Spine thoracic 2 views DX Spine thoracic 2 views DX EXAM: XR THORACOLUMBAR SPINE 2 VIEWS DATE: 2014-02-27 16:33:00 INDICATION: Trauma COMPARISON: None available TECHNIQUE: AP and lateral radiographs of the thoracolumbar junction FINDINGS: No fracture, malalignment or other bony abnormality is identified. There is multilevel degenerative disease of the thoracic spine with marginal osteophyte formation. There is also multilevel facet arthropathy of the lumbar spine. Surgical clips overlie the right upper quadrant of the abdomen consistent with prior cholecystectomy. There is aortobiiliac atherosclerotic calcification. Moderate retained fecal material is seen in the visualized colonic loops. IMPRESSION: 1. No acute osseous abnormalities identified. 2. Mild multilevel degenerative disc disease of the thoracic spine and facet arthropathy of the lumbar spine. 3. Aortobiiliac atherosclerotic calcification. 4. Moderate retained fecal material throughout the visualized colonic loops. 02/27/2014 - - This report was dictated by a O And M Supervisor/Fellow. I have personally reviewed the images as well as the Resident's interpretation and agree with the findings. Read by: Dmitry Mishra (fel Resident: Dmitry Mishra (fel Dictated Date/time: 02/27/14 16:42 Electronically Signed by: Jaleel Elizondo MD 02/27/14 21:41 FINAL REPORT [facility] Spine lumbar 2 or 3 views DX Spine lumbar 2 or 3 views DX EXAM: XR THORACOLUMBAR SPINE 2 VIEWS DATE: 2014-02-27 16:33:00 INDICATION: Trauma COMPARISON: None available TECHNIQUE: AP and lateral radiographs of the thoracolumbar junction FINDINGS: No fracture, malalignment or other bony abnormality is identified. There is multilevel degenerative disease of the thoracic spine with marginal osteophyte formation. There is also multilevel facet arthropathy of the lumbar spine. Surgical clips overlie the right upper quadrant of the abdomen consistent with prior cholecystectomy. There is aortobiiliac atherosclerotic calcification. Moderate retained fecal material is seen in the visualized colonic loops. IMPRESSION: 1. No acute osseous abnormalities identified. 2. Mild multilevel degenerative disc disease of the thoracic spine and facet arthropathy of the lumbar spine. 3. Aortobiiliac atherosclerotic calcification. 4. Moderate retained fecal material throughout the visualized colonic loops. 02/27/2014 - - This report was dictated by a O And M Supervisor/Fellow. I have personally reviewed the images as well as the Resident's interpretation and agree with the findings. Read by: Dmitry Mishra (fel Resident: Dmitry Mishra (fel Dictated Date/time: 02/27/14 16:42 Electronically Signed by: Jaleel Elizondo MD 02/27/14 21:41 FINAL REPORT [facility] CHEM PANEL eGFR 47 mL/min/1.73m2 02/27/2014 1Result Comment: The eGFR is calculated using the CKD-EPI formula. In most young, healthy individuals the eGFR will be >90 mL/min/1.73m2. The eGFR declines with age. An eGFR of 60-89 may be normal in some populations, particularly the elderly, for whom the CKD-EPI formula has not been extensively validated. Use of the eGFR is not recommended in the following populations: Individuals with unstable creatinine concentrations, including patients and those with serious co-morbid conditions. Patients with extremes in muscle mass or diet. The data above are obtained from the National Kidney Disease Education Program (NKDEP) which additionally recommends that when the eGFR is used in patients with extremes of body mass index for purposes of drug dosing, the eGFR should be multiplied by the estimated BMI. [facility] CHEM PANEL AGAP 10.9 meq/L 10.0 - 20.0 02/27/2014 [facility] CHEM PANEL Calcium Lvl 9.3 mg/dL 8.5 - 10.5 02/27/2014 [facility] CHEM PANEL Chloride Lvl 99 meq/L 95 - 109 02/27/2014 [facility] CHEM PANEL CO2 34 meq/L 24 - 32 02/27/2014 [facility] CHEM PANEL Potassium Lvl 3.9 meq/L 3.5 - 5.1 02/27/2014 [facility] CHEM PANEL Creatinine Lvl 1.3 mg/dL 0.5 - 1.4 02/27/2014 [facility] CHEM PANEL Sodium Lvl 140 meq/L 135 - 145 02/27/2014 [facility] CHEM PANEL Glucose Lvl 157 mg/dL 70 - 99 02/27/2014 4Interpretive Data: Adult reference range values reflect the clinical guidelines of the [place] [employer]. [facility] CHEM PANEL BUN 18 mg/dL 7 - 22 02/27/2014 [facility] LIPIDS LDL (Calculated) 94 mg/dL <=99 mg/dL 02/27/2014 [facility] LIPIDS Chol 205 mg/dL <=199 mg/dL 02/27/2014 [facility] LIPIDS HDL 60 mg/dL >=61 mg/dL 02/27/2014 [facility] LIPIDS Trig 256 mg/dL <=149 mg/dL 02/27/2014 [facility] LIPIDS VLDL 51 02/27/2014 [facility] LIPIDS CHD Risk 3.42 3.90 - 5.80 02/27/2014 [facility] SPECIAL CHEMISTRY Hgb A1C 8.3 % <=5.6 % 02/27/2014 [facility] THYROID PANEL TSH 2.470 uIU/mL 0.360 - 3.740 02/27/2014 [facility] TOXICOLOGY Valproic Acid Lvl 25 ug/ml 50 - 100 02/27/2014 [facility] URINE AND STOOL UA Mucus Few /LPF None Seen /LPF 02/27/2014 [facility] URINE AND STOOL UA WBC 1 /HPF 0 - 5 02/27/2014 [facility] URINE AND STOOL UA Sq Epi Few /LPF Few /LPF 02/27/2014 [facility] URINE AND STOOL UA Leuk Est Negative (02/26/14 11:23 PM) Negative 02/27/2014 [facility] URINE AND STOOL UA Nitrite Negative (02/26/14 11:23 PM) Negative 02/27/2014 [facility] URINE AND STOOL UA Urobilinogen <=1.0 mg/dL 0.1 - 1.0 02/27/2014 [facility] URINE AND STOOL UA Spec Grav 1.040 <=1.030 02/27/2014 [facility] URINE AND STOOL UA Blood Negative (02/26/14 11:23 PM) Negative 02/27/2014 [facility] URINE AND STOOL UA Turbidity Clear (02/26/14 11:23 PM) Clear 02/27/2014 [facility] URINE AND STOOL UA Color Yellow *NA* (02/26/14 11:23 PM) Yellow 02/27/2014 [facility] URINE AND STOOL UA Bili Negative *NA* (02/26/14 11:23 PM) Negative 02/27/2014 [facility] URINE AND STOOL UA Ketones Negative mg/dL Negative mg/dL 02/27/2014 [facility] URINE AND STOOL UA Glucose Negative mg/dL Negative mg/dL 02/27/2014 [facility] URINE AND STOOL UA Protein Negative mg/dL Negative mg/dL 02/27/2014 [facility] URINE AND STOOL UA pH 5.5 5.0 - 8.0 02/27/2014 [facility] CHEM PANEL eGFR 47 mL/min/1.73m2 02/26/2014 2Result Comment: The eGFR is calculated using the CKD-EPI formula. In most young, healthy individuals the eGFR will be >90 mL/min/1.73m2. The eGFR declines with age. An eGFR of 60-89 may be normal in some populations, particularly the elderly, for whom the CKD-EPI formula has not been extensively validated. Use of the eGFR is not recommended in the following populations: Individuals with unstable creatinine concentrations, including patients and those with serious co-morbid conditions. Patients with extremes in muscle mass or diet. The data above are obtained from the National Kidney Disease Education Program (NKDEP) which additionally recommends that when the eGFR is used in patients with extremes of body mass index for purposes of drug dosing, the eGFR should be multiplied by the estimated BMI. [facility] CHEM PANEL POC Creatinine 1.3 mg/dL 0.5 - 1.4 02/26/2014 [facility] CARDIAC ENZYMES CK MB 3.3 ng/mL 0.5 - 3.6 02/26/2014 [facility] CARDIAC ENZYMES Total CK 213 unit/L 12 - 191 02/26/2014 [facility] CARDIAC ENZYMES Troponin-I null 0.00 - 0.40 02/26/2014 [facility] CARDIAC ENZYMES CK MB Index 1.5 0.0 - 2.5 02/26/2014 [facility] CHEM PANEL eGFR 39 mL/min/1.73m2 02/26/2014 3Result Comment: The eGFR is calculated using the CKD-EPI formula. In most young, healthy individuals the eGFR will be >90 mL/min/1.73m2. The eGFR declines with age. An eGFR of 60-89 may be normal in some populations, particularly the elderly, for whom the CKD-EPI formula has not been extensively validated. Use of the eGFR is not recommended in the following populations: Individuals with unstable creatinine concentrations, including patients and those with serious co-morbid conditions. Patients with extremes in muscle mass or diet. The data above are obtained from the National Kidney Disease Education Program (NKDEP) which additionally recommends that when the eGFR is used in patients with extremes of body mass index for purposes of drug dosing, the eGFR should be multiplied by the estimated BMI. [facility] CHEM PANEL AGAP 11.9 meq/L 10.0 - 20.0 02/26/2014 [facility] CHEM PANEL CO2 29 meq/L 24 - 32 02/26/2014 [facility] CHEM PANEL Calcium Lvl 9.5 mg/dL 8.5 - 10.5 02/26/2014 [facility] CHEM PANEL Potassium Lvl 3.9 meq/L 3.5 - 5.1 02/26/2014 [facility] CHEM PANEL Chloride Lvl 96 meq/L 95 - 109 02/26/2014 [facility] CHEM PANEL Creatinine Lvl 1.5 mg/dL 0.5 - 1.4 02/26/2014 [facility] CHEM PANEL Sodium Lvl 133 meq/L 135 - 145 02/26/2014 [facility] CHEM PANEL BUN 20 mg/dL 7 - 22 02/26/2014 [facility] CHEM PANEL Glucose Lvl 395 mg/dL 70 - 99 02/26/2014 5Interpretive Data: Adult reference range values reflect the clinical guidelines of the [place] [employer]. [facility] HEMATOLOGY PT 12.3 s 12.0 - 14.7 02/26/2014 [facility] HEMATOLOGY INR 0.92 0.85 - 1.17 02/26/2014 6Interpretive Data: RECOMMENDED RANGES FOR PROTIME INR: 2.0-3.0 for most medical and surgical thromboembolic states. 2.5-3.5 for artificial heart valves and recurrent embolism. INR SHOULD BE USED ONLY FOR PATIENTS ON STABLE ANTICOAGULANT THERAPY. [facility] HEMATOLOGY MPV 7.7 fL 7.4 - 10.4 02/26/2014 [facility] HEMATOLOGY Platelet 296 K/CMM 133 - 450 02/26/2014 [facility] HEMATOLOGY RDW 12.1 % 11.5 - 14.5 02/26/2014 [facility] HEMATOLOGY MCV 94.1 fL 80.0 - 98.0 02/26/2014 [facility] HEMATOLOGY MCHC 33.8 g/dL 32.0 - 36.0 02/26/2014 [facility] HEMATOLOGY MCH 31.8 pg 27.0 - 31.0 02/26/2014 [facility] HEMATOLOGY RBC 4.02 M/CMM 4.20 - 5.40 02/26/2014 [facility] HEMATOLOGY Hgb 12.8 g/dL 12.0 - 16.0 02/26/2014 [facility] HEMATOLOGY Hct 37.8 % 36.0 - 48.0 02/26/2014 [facility] HEMATOLOGY WBC 7.7 K/CMM 3.7 - 10.4 02/26/2014 [facility] HEMATOLOGY PTT 24.5 s 22.9 - 35.8 02/26/2014 7Interpretive Data: Heparin Therapeutic Range: 57 - 92 Seconds [facility] HEMATOLOGY Basophils # 0.0 K/CMM 0.0 - 0.2 02/26/2014 [facility] HEMATOLOGY Monocytes # 0.5 K/CMM 0.0 - 0.8 02/26/2014 [facility] HEMATOLOGY Eosinophils # 0.1 K/CMM 0.0 - 0.5 02/26/2014 [facility] HEMATOLOGY Basophils 0.3 % 0.0 - 1.0 02/26/2014 [facility] HEMATOLOGY Lymphocytes # 1.9 K/CMM 1.0 - 5.5 02/26/2014 [facility] HEMATOLOGY Segs-Bands # 5.2 K/CMM 1.5 - 8.1 02/26/2014 [facility] HEMATOLOGY Eosinophils 1.5 % 0.0 - 4.0 02/26/2014 [facility] HEMATOLOGY Monocytes 7.1 % 2.0 - 12.0 02/26/2014 [facility] HEMATOLOGY Lymphocytes 24.5 % 20.0 - 40.0 02/26/2014 [facility] HEMATOLOGY Segs 66.6 % 45.0 - 75.0 02/26/2014 [facility] Brain wo contrast MRI Brain wo contrast MRI EXAM: MRI BRAIN WITHOUT CONTRAST DATE: 02/26/2014 INDICATION: Vertigo TECHNIQUE: Limited sequences were obtained including DWI, axial T2 FLAIR, and GRE. COMPARISON: CT brain from 02/26/2014 FINDINGS: No restricted diffusion or hemorrhage. No hydrocephalus, midline shift, or extra-axial collection. Scattered mild chronic microangiopathic changes. IMPRESSION: No recent infarction. 02/26/2014 - - Read by: Justus Gutierrez MD Dictated Date/time: 02/27/14 07:21 Electronically Signed by: Justus Gutierrez MD 02/27/14 07:25 FINAL REPORT [facility] Vital Signs Vital Sign Value Date Comments Source Systolic (mm Hg) 110 04/23/2015 [facility] Diastolic (mm Hg) 60 04/23/2015 [facility] Systolic (mm Hg) 97 04/23/2015 [facility] Diastolic (mm Hg) 55 04/23/2015 [facility] Systolic (mm Hg) 111 04/23/2015 [facility] Diastolic (mm Hg) 59 04/23/2015 [facility] Respitory Rate 21 04/23/2015 [facility] Respitory Rate 18 04/23/2015 [facility] Respitory Rate 12 04/23/2015 [facility] Temperature Oral (F) 98.0 F 04/18/2015 [facility] Heart Rate 91 04/18/2015 [facility] Height 154.94 cm 04/18/2015 [facility] BMI Calculated 41.13 04/18/2015 [facility] Weight 98.75 04/18/2015 [facility] Respitory Rate 18 02/27/2014 [facility] Heart Rate 80 02/27/2014 [facility] Temperature Oral (F) 97.6 F 02/27/2014 [facility] Diastolic (mm Hg) 78 02/27/2014 [facility] Systolic (mm Hg) 126 02/27/2014 [facility] Weight 97.727 02/27/2014 [facility] Height 157.48 cm 02/27/2014 [facility] BMI Calculated 39.41 02/27/2014 [facility] Systolic (mm Hg) 123 02/27/2014 [facility] Diastolic (mm Hg) 70 02/27/2014 [facility] Heart Rate 84 02/27/2014 [facility] Respitory Rate 16 02/27/2014 [facility] Systolic (mm Hg) 143 02/27/2014 [facility] Diastolic (mm Hg) 65 02/27/2014 [facility] Temperature Oral (F) 98.1 F 02/27/2014 [facility] Respitory Rate 16 02/27/2014 [facility] Temperature Oral (F) 98.6 F 02/27/2014 [facility] Diastolic (mm Hg) 59 02/27/2014 [facility] Systolic (mm Hg) 130 02/27/2014 [facility] Heart Rate 89 02/27/2014 [facility] Respitory Rate 17 02/27/2014 [facility] Temperature Oral (F) 98.0 F 02/27/2014 [facility] Heart Rate 90 02/27/2014 [facility] Systolic (mm Hg) 123 02/27/2014 [facility] Respitory Rate 18 02/27/2014 [facility] Diastolic (mm Hg) 59 02/27/2014 [facility] Weight 97.727 02/27/2014 [facility] BMI Calculated 39.41 02/27/2014 [facility] Height 157.48 cm 02/27/2014 [facility] Heart Rate 93 02/26/2014 [facility] Height 157.48 cm 02/26/2014 [facility] Weight 96.364 02/26/2014 [facility] BMI Calculated 38.86 02/26/2014 [facility] Encounters Location Location Details Encounter Type Encounter Number Reason For Visit Attending Provider ADM Date DC Date Status Source [facility] OBS Observation Patient [id number] Domingo Lara 02/26/2014 02/27/2014 [facility] [id number] Olesya Hernandez 02/27/2014 02/27/2014 [facility] [place] OP Therapy Patients [id number] Gianluca Waldron 11/22/2014 12/22/2014 [facility] OBS Day Surgery [id number] Gianluca Waldron 04/23/2015 04/23/2015 [facility] [place] OP Therapy Patients [id number] Gianluca Waldron 02/25/2016 03/26/2016 [facility] [place] Outpatient [id number] TESFAYE ROWE 07/14/2016 Active [facility] Outpatient [id number] Tesfaye Rowe 07/27/2016 07/28/2016 [facility] Outpatient [id number] TESFAYE ROWE 08/11/2016 [facility] Outpatient [id number] CARLIE JAILENE 09/16/2016 [facility] Outpatient [id number] TESFAYE ROWE 10/13/2016 Active [facility] Outpatient [id number] Tesfaye Rowe 10/19/2016 10/20/2016 [facility] Procedures Procedure Code Date Perfomer Comments Source Appendectomy [id number] [facility] [place] Knee arthroplasty [id number] [facility] Partial hysterectomy [id number] [facility] Procedure on upper arm [id number] [facility] Rotator cuff repair [id number] [facility] [place] Tonsillectomy [id number] [facility] Appendectomy [id number] [facility] Knee arthroplasty [id number] [facility] Partial hysterectomy [id number] [facility] Procedure on upper arm [id number] [facility] Rotator cuff repair [id number] [facility] Tonsillectomy [id number] [facility] Appendectomy [id number] [facility] Cataract surgery<sup>1</sup> [id number] 2007 [facility] Cholecystectomy<sup>2</sup> [id number] 1997 [facility] Colonoscopy [id number] [facility] Excision of condyloma acuminatum<sup>3</sup> [id number] 1999 [facility] Operation<sup>4</sup> [id number] Left heel fracture with tendon tearing [facility] Operation<sup>5</sup> [id number] spiral fracture 2012 [facility] Partial hysterectomy [id number] [facility] Procedure on upper arm [id number] [facility] Release of trigger thumb<sup>6</sup> [id number] 2003 [facility] Rotator cuff repair [id number] [facility] Rotator cuff repair<sup>7</sup> [id number] 2004 [facility] Tonsillectomy [id number] [facility] Appendectomy [id number] [facility] Cataract surgery<sup>1</sup> [id number] 2007 [facility] Cholecystectomy<sup>2</sup> [id number] 1997 [facility] Colonoscopy [id number] [facility] Excision of condyloma acuminatum<sup>3</sup> [id number] 1999 [facility] Operation<sup>4</sup> [id number] Left heel fracture with tendon tearing [facility] Operation<sup>5</sup> [id number] spiral fracture 2012 [facility] Partial hysterectomy [id number] [facility] Procedure on upper arm [id number] [facility] Release of trigger thumb<sup>6</sup> [id number] 2003 [facility] Rotator cuff repair [id number] [facility] Rotator cuff repair<sup>7</sup> [id number] 2004 [facility] Tonsillectomy [id number] [facility]
[2018-08-01] MEDS ORDERED: MORPHINE SULFATE 2 MG/ML SYR 1ML IV STA (19:50)
[2018-08-01] MEDS ORDERED: MORPHINE SULFATE INJ 4 MG/ML INJ 1ML IV ONE (20:00)
[2018-08-01] MEDS ORDERED: KETOROLAC TROMETHAMINE 30 MG/ML VIAL IV ONE (20:00)
[2018-08-01] MEDS ORDERED: SODIUM CHLORIDE 0.9% 1000ML 1,000 ML IV SCH (20:00)
[2018-08-01] MEDS ORDERED: DIPHENHYDRAMINE HCL INJ 50 MG/ML VIAL IV ONE (20:00)
[2018-08-01] MEDS ORDERED: METOCLOPRAMIDE HCL 10 MG/2ML VIAL IV ONE (20:00)
[2018-08-01] MEDS ORDERED: SODIUM CHLORIDE 0.9% 250ML 250 ML IV ONE (20:45)
[2018-08-01 22:17] VITALS: BP 114/49
== END 2018-08-01 22:18 | disposition home or self-care (01) ==
LOC: ER 18:11
DX: G43.909 Migraine, unspecified, not intractable, without status migrainosus (principal); J01.10 Acute frontal sinusitis, unspecified; E11.9 Type 2 diabetes mellitus without complications; E78.5 Hyperlipidemia, unspecified; E03.9 Hypothyroidism, unspecified; K21.9 Gastro-esophageal reflux disease without esophagitis; K58.9 Irritable bowel syndrome, unspecified; M19.90 Unspecified osteoarthritis, unspecified site; M81.0 Age-related osteoporosis without current pathological fracture; F32.9 Major depressive disorder, single episode, unspecified; G25.81 Restless legs syndrome; Z79.4 Long term (current) use of insulin; Z88.5 Allergy status to narcotic agent
CPT/HCPCS: 36415; 82948; 99283; J1200; J1885; J2270; J2765; J7030

== ENCOUNTER 2018-08-03 13:53 | Outpatient (RCR) | payer MEDICARE, OTHER | END 2018-08-04 | LOC: PT 13:53 | PROVIDERS: ATTEND Specialist | DX: M47.816 Spondylosis without myelopathy or radiculopathy, lumbar region (principal); M54.5 Low back pain; M62.81 Muscle weakness (generalized) ==

== ENCOUNTER 2018-08-11 13:00 | Outpatient (RCR) | payer MEDICARE | END 2018-09-04 | LOC: PT 13:00 | PROVIDERS: ATTEND Specialist | DX: M47.816 Spondylosis without myelopathy or radiculopathy, lumbar region (principal); M62.81 Muscle weakness (generalized); M54.5 Low back pain | CPT/HCPCS: 97139 ==

== ENCOUNTER → 2018-09-02 | Outpatient (CLI) | payer OTHER ==
--- NOTE | 2018-09-02 20:01 | Diagnostic Imaging Report ---
MRI SPINE LUMBAR WO HISTORY: Low back pain COMPARISON: MRI of the lumbar spine 06/01/2017 TECHNIQUE: Sagittal T1, sagittal T2, sagittal STIR, axial T2, coronal T2, and axial proton density weighted images of the lumbar spine were obtained without contrast. DISCUSSION: Number of non-rib bearing lumbar vertebral bodies: 5. Alignment: Normal lordosis. No scoliosis. Vertebrae: Mild to moderate compression deformity of the L1 vertebral body is associated with mild STIR hyperintensity along the anterior superior endplate; there is no significant retropulsion. No definite additional fractures, infection or neoplasm. Conus medullaris: Normal, ends at L1-L2. Cauda equina: No masses or arachnoiditis. Posterior paraspinal muscles: Well preserved. No signal abnormalities. Soft tissues: No signal abnormalities. Minimal multilevel disc degeneration is most prominent at T12-L1 T12-L1: Disc bulge without significant canal or foraminal stenosis. L1-L2: Patent canal and foramina. L2-L3: Minimal disc bulge without significant canal or foraminal stenosis. L3-L4: Minimal disc bulge without significant canal or foraminal stenosis. L4-L5: Mild canal stenosis due to disc bulge and ligamentum flavum thickening. Mild bilateral foraminal stenoses due to disc bulge and facet arthrosis. Facet arthrosis is mild to moderate. L5-S1: Mild to moderate right foraminal stenosis due to 6 mm right foraminal disc protrusion and facet arthrosis. Mild left foraminal stenosis due to disc bulge and facet arthrosis. No significant canal stenosis. IMPRESSION: 1. Mild to moderate L1 vertebral compression fracture may be subacute or chronic. No significant fracture retropulsion. Nonspecific mild inflammatory change along the anterior superior L1 endplate. 2. Minimal multilevel disc degeneration, most prominent at T12-L1. 3. Mild degenerative canal stenosis at L4-L5. 4. Degenerative foraminal stenoses - mild bilaterally at L4-L5; mild to moderate right and mild left at L5-S1. Signed by: Dr. Tono Almanzar M.D. on 09/02/2018 7:58 PM
== END ==
LOC: MRI 09:20
PROVIDERS: ATTEND Specialist
DX: M47.816 Spondylosis without myelopathy or radiculopathy, lumbar region (principal)
CPT/HCPCS: 72148

== ENCOUNTER → 2018-12-17 | Day surgery (SDC) | payer MEDICARE, OTHER ==
[~2018-12-17] MED LIST changes: +EMGALITY SC; +HYOSCYAMINE 0.125 MG TAB ONE; +MIDAZOLAM HCL 2 MG/2 ML VIAL ONE; +ZOLOFT50 MG PO
--- NOTE | 2018-12-17 18:50 | Operative Report ---
DATE OF PROCEDURE: 12/17/2018 SURGEON: John Cuevas MD PROCEDURE: Colonoscopy and polypectomy. INDICATIONS FOR COLONOSCOPY: Surveillance colonoscopy, personal history of colon polyps. MEDICATIONS: The patient was done under MAC, please see anesthesiologist's note. PROCEDURE IN DETAIL: With the patient in left lateral decubitus position, flexible fiberoptic Olympus colonoscope was inserted into the rectum with ease, and advanced all the way to the cecum. It was then withdrawn slowly. Mucosa overlying the cecum appeared to be within normal limits. Two polyps were removed per cold biopsy forceps from the ascending colon. The transverse appeared to be within normal limits. One polyp was hot biopsied from the descending colon. Three polyps were removed in the sigmoid colon per cold and hot biopsy forceps and 5 polyps were removed per hot biopsy forceps from the rectum. The scope was then retroflexed into the distal rectum and moderate-sized internal hemorrhoids were noted, none of which was actively bleeding. The scope was then straightened out and it was subsequently withdrawn. The patient tolerated procedure well. IMPRESSION: 1. Ascending polyps x2, removed per cold biopsy forceps. 2. Descending colon polyp x1, hot biopsied. 3. Sigmoid colon polyps x3, removed per hot and cold biopsy forceps. 4. Rectal polyps x5, hot biopsied. 5. Internal hemorrhoids, none actively bleeding. PLAN: Follow up histology. Initiate high-fiber, low-fat diet. Initiate high-fiber supplement. The patient might benefit from a followup colonoscopy in 3 years. John Cuevas MD [facility] [place] /[id number] cc: Jeffrey Culver DO
== END | disposition home or self-care (01) ==
LOC: OR 10:30
PROVIDERS: ATTEND Internal Medicine Gastroenterology
DX: Z09 Encounter for follow-up examination after completed treatment for conditions other than malignant neoplasm (principal); D12.0 Benign neoplasm of cecum; D12.4 Benign neoplasm of descending colon; K62.1 Rectal polyp; K58.9 Irritable bowel syndrome, unspecified; K64.8 Other hemorrhoids; K21.9 Gastro-esophageal reflux disease without esophagitis; G47.33 Obstructive sleep apnea (adult) (pediatric); E78.00 Pure hypercholesterolemia, unspecified; E03.9 Hypothyroidism, unspecified; E11.9 Type 2 diabetes mellitus without complications; R03.0 Elevated blood-pressure reading, without diagnosis of hypertension; G89.29 Other chronic pain; G43.909 Migraine, unspecified, not intractable, without status migrainosus; F32.9 Major depressive disorder, single episode, unspecified; F41.9 Anxiety disorder, unspecified; Z88.6 Allergy status to analgesic agent; Z91.048 Other nonmedicinal substance allergy status; Z01.810 Encounter for preprocedural cardiovascular examination; Z79.84 Long term (current) use of oral hypoglycemic drugs; Z79.4 Long term (current) use of insulin; Z68.35 Body mass index [BMI] 35.0-35.9, adult; Z87.891 Personal history of nicotine dependence
CPT/HCPCS: 36415; 45380; 45384; 82948; 93005; J2250

== ENCOUNTER → 2019-08-09 | Outpatient (CLI) | payer MEDICARE ==
[~2019-08-09] MED LIST changes: -HYOSCYAMINE 0.125 MG TAB ONE; -MIDAZOLAM HCL 2 MG/2 ML VIAL ONE
--- NOTE | 2019-08-09 10:00 | Diagnostic Imaging Report ---
EXAMINATION: MRI OF THE LEFT KNEE WITHOUT CONTRAST INDICATION: Medial knee pain COMPARISON: None FINDINGS: Joint effusion:Small suprapatellar joint effusion. Hoffa's fat pad appears unremarkable. No Royal's cyst. Menisci:No meniscal tear. Lateral and medial meniscus intact. Tendons and ligaments:The ACL and PCL are intact. Mild thickening and increased signal associated with the medial collateral ligament. Articular cartilage:The articular cartilage is normal in thickness. No focal full-thickness defect. BONES:No abnormal marrow signal. IMPRESSION: Mild thickening and increased signal associated with the medial collateral ligament, possibly representing sprain. No meniscal tear. Signed by: Tri Cooney MD on 08/09/2019 9:57 AM
== END ==
LOC: MRI 08:25
PROVIDERS: ATTEND Family Medicine
DX: M23.312 Other meniscus derangements, anterior horn of medial meniscus, left knee (principal)

== ENCOUNTER 2019-12-23 18:13 | Emergency (ER) | payer MEDICARE ==
[~2019-12-23] VITALS: Ht 160 cm; Wt 82.6 kg
[~2019-12-23 18:13] MED LIST changes: -EMGALITY SC; +EMGALITY SQ; -VITAMIN B-125000 MCG PEG; +VITAMIN B-125000 MCG PO
[2019-12-23] MEDS ORDERED: ACETAMIN/BUTALBITAL/CAFFEINE TAB PO ONE (19:15)
[2019-12-23] MEDS ORDERED: ONDANSETRON HCL 4 MG ORAL DISINTEGRATING TAB PO ONE (19:15)
--- NOTE | 2019-12-23 20:14 | Emergency Department Note ---
History of Present Illnes History of Present Illness Chief Complaint: General Medicine Complaints History of Present Illness This is a 59 year old female FEMALE PT AAOX3 PRESENTS TO THE ER C/O HEADACHE BEHIND RT EYE AND NAUSEA X4 DAYS; HX OF MIGRAINES; PT DENIES LIGHTHEADED/DIZZINESS; DENIES BLURRED VISION; NAD NOTED AT THIS TIME; NO NEURO DEFICITS NOTED; PT STATES THIS FEELS LIKE HER MIGRAINES IN PAST BUT HER MEDS JUST ARE NOT STOPPING IT THIS TIME . Historian: Patient Arrival Mode: Car Onset (how long ago): day(s) (4) Location: LEFT HEAD Quality: HEADACHE Radiation: Reports non-radiation Severity: moderate Onset quality: gradual Duration (how long): day(s) (4) Timing of current episode: constant Progression: unchanged Chronicity: recurrent Context: Denies recent illness, Denies recent surgery Relieving factors: none Exacerbating factors: none Associated symptoms: Reports nausea/vomiting (NO VOMITING) Treatments prior to arrival: other (ROLPAX) Past Medical/Family History Physician Review I have reviewed the patient's past medical and family history. Any updates have been documented here. Past Medical History Recent Fever: No Clinical Suspicion of Infectio: No New/Unexplained Change in Ment: No Past Medical History: Diabetes, Hypothyroidism, Migraines, Depression, Osteoarthritis Other Medical History: DEPRESSION, HYPERCHOLESTEROLEMIA, PANCREATITIS GERD IBSC OSTOPENA RLS EDEMA Past Surgical History: Cholecysctectomy, Appendectomy, Hysterectomy, T&A Other Surgery: TONSILS LEFT KNEE RIGHT & LEFT THUMB RT RADIAL RELEASE RIGHT ROTATOR REPAIR RIGHT WRIST LIVER BIOPSY ATTEMPTED SUICIDE 07/02/11 LEFT HUMERUS GASTRIC SLEVE Colostomy colostomy reversal Social History Smoking Cessation: Never Smoker Alcohol Use: None Any Illegal Drug Use: No Physically hurt or threatened: No Family History Family history of heart diseas: No Other family history HTN,DM Other Last Tetanus: UNK Review of Systems Review of Systems Constitutional: Reports no symptoms EENTM: Reports no symptoms Cardiovascular: Reports no symptoms Respiratory: Reports no symptoms Gastrointestinal: Reports no symptoms Genitourinary: Reports no symptoms Musculoskeletal: Reports no symptoms Integumentary: Reports no symptoms Neurological: Reports as per HPI Psychological: Reports no symptoms Endocrine: Reports no symptoms Hematological/Lymphatic: Reports no symptoms Physical Exam Related Data Allergies: Coded Allergies: hydromorphone (Verified Allergy, Mild, 04/04/16) Uncoded Allergies: TAPE (Allergy, Intermediate, BLISTERS, 06/09/15) Triage Vital Signs Vital Signs Date Time Temp Pulse Resp B/P (MAP) Pulse Ox O2 Delivery O2 Flow Rate FiO2 12/23/19 19:00 99.1 80 18 128/61 97 Room Air Vital signs reviewed: Yes Physical Exam CONSTITUTIONAL Constitutional: Present well-developed, Present well-nourished; Absent distressed HENT HENT: Present normocephalic, Present atraumatic, Present oropharynx clear/moist, Present nose normal HENT L/R: Present left ext ear normal, Present right ext ear normal EYES Eyes: Reports PERRL, Reports conjunctivae normal NECK Neck: Present ROM normal PULMONARY Pulmonary: Present effort normal, Present breath sounds normal CARDIOVASCULAR Cardiovascular: Present regular rhythm, Present heart sounds normal, Present c apillary refill normal, Present normal rate GASTROINTESTINAL Abdominal: Present soft, Present nontender, Present bowel sounds normal GENITOURINARY Genitourinary: Present exam deferred SKIN Skin: Present warm, Present dry MUSCULOSKELETAL Musculoskeletal: Present ROM normal NEUROLOGICAL Neurological: Present alert, Present oriented x 3, Present no gross motor or sensory deficits PSYCHOLOGICAL Psychological: Present mood/affect normal, Present judgement normal Results Laboratory Laboratory Laboratory Tests Test 12/23/19 20:25 White Blood Count 8.20 x10e3/uL (4.8-10.8) Red Blood Count 4.25 x10e6/uL (3.6-5.1) Hemoglobin 12.2 g/dL (12.0-16.0) Hematocrit 38.7 % (34.2-44.1) Mean Corpuscular Volume 91.1 fL (81-99) Mean Corpuscular Hemoglobin 28.7 pg (28-32) Mean Corpuscular Hemoglobin Concent 31.5 g/dL (31-35) Red Cell Distribution Width 12.5 % (11.7-14.4) Platelet Count 381 x10e3/uL (140-360) Neutrophils (%) (Auto) 57.5 % (38.7-80.0) Lymphocytes (%) (Auto) 33.8 % (18.0-39.1) Monocytes (%) (Auto) 5.1 % (4.4-11.3) Eosinophils (%) (Auto) 2.0 % (0.0-6.0) Basophils (%) (Auto) 0.5 % (0.0-1.0) Neutrophils # (Auto) 4.7 (2.1-6.9) Lymphocytes # (Auto) 2.8 (1.0-3.2) Monocytes # (Auto) 0.4 (0.2-0.8) Eosinophils # (Auto) 0.2 (0.0-0.4) Basophils # (Auto) 0.0 (0.0-0.1) Absolute Immature Granulocyte (auto 0.09 x10e3/uL (0-0.1) Sodium Level 141 mmol/L (136-145) Potassium Level 3.9 mmol/L (3.5-5.1) Chloride Level 102 mmol/L (98-107) Carbon Dioxide Level 27 mmol/L (22-29) Anion Gap 15.9 mmol/L (8-16) Blood Urea Nitrogen 33 mg/dL (7-26) Creatinine 1.49 mg/dL (0.57-1.11) Estimat Glomerular Filtration Rate 36 ML/MIN (60-) BUN/Creatinine Ratio 22 (6-25) Glucose Level 62 mg/dL (74-118) Calcium Level 9.6 mg/dL (8.4-10.2) Lab results reviewed: Yes Assessment & Plan Medical Decision Making MDM PT WITH MIGRAINE HEADACHE FIORICET 1 PO ORDERED ZOFRAN ODT 4 MG SL ORDERED PT DISCHARGED HOME WITH PRESCRIPTION FIORICET 1 PO Q 6 HOURS PRN HEADACHE Reassessment Reassessment time: 22:27 Reassessment PT STATES HEADACHE MUCH BETTER AND SHE IS READY TO GO HOME Assessment & Plan Final Impression: (1) Migraine Last Vital Signs Date Time Temp Pulse Resp B/P (MAP) Pulse Ox O2 Delivery O2 Flow Rate FiO2 12/23/19 19:00 99.1 80 18 128/61 97 Room Air Home Meds Reported Medications Sertraline Hcl (ZOLOFT) 50 Mg Tablet, 100 MG PO DAILY, #30 TAB 12/13/18 Bupropion Hcl (WELLBUTRIN XL) 300 Mg Tab.er.24h, 450 MG PO DAILY 12/13/18 [Emgality] No Conflict Check, SC ONCE 12/13/18 Cyanocobalamin (Vitamin B-12) (VITAMIN B-12) 5,000 Mcg Tab.subl, 5000 MCG PEG DAILY 12/24/17 Ferrous Sulfate (FERROUS SULFATE) 324 Mg Tablet.dr, 65 MG PO DAILY 12/24/17 Sennosides (SENNA) 8.6 Mg Tablet, 1 TAB PO HS 12/24/17 Vitamin E Acetate (VITAMIN E) 400 Unit Capsule, 186 UNITS PO BID, #30 CAP 12/24/17 Garlic (GARLIC) 1,000 Mg Capsule, 1000 MG PO BID 12/24/17 [Calcium Mg Zinc] No Conflict Check, 1 TAB PO BID 12/24/17 Melatonin (MELATONIN) 3 Mg Tablet, 10 MG PO HS, TAB 12/24/17 Multivitamin (MULTI-VITAMIN DAILY) 1 Each Tablet, 1 TAB PO DAILY 12/24/17 Bupropion Hcl (WELLBUTRIN SR) 150 Mg Tablet.er, 450 MG PO DAILY 05/14/16 Trazodone Hcl (TRAZODONE HCL) 150 Mg Tablet, 400 MG PO HS 02/23/16 Aripiprazole (ABILIFY) 15 Mg Tablet, 15 MG PO DAILY 02/23/16 Insulin Detemir (LEVEMIR) 100 Unit/1 Ml Vial, 20 UNITS SQ HS 02/23/16 Insulin Human Lispro (HUMALOG) 100 Units/Ml Ml, 15 UNITS SC TID 02/23/16 Spironolactone (SPIRONOLACTONE) 100 Mg Tablet, 100 MG PO DAILY@1700 02/23/16 Cyclobenzaprine Hcl (FLEXERIL) 5 Mg Tablet, 10 MG PO PRN 02/23/16 Metformin Hcl (METFORMIN HCL) 500 Mg Tablet, 1000 MG PO BID, #60 TAB 06/09/15 Furosemide (FUROSEMIDE) 80 Mg Tablet, 40 MG PO DAILY 02/10/15 Simvastatin (SIMVASTATIN) 20 Mg Tablet, 40 MG PO 2100, EA 02/10/15 Fenofibrate Nanocrystallized (FENOFIBRATE) 145 Mg Tablet, 145 MG PO HS 02/10/15 Ibandronate Sodium (BONIVA) 150 Mg Tab, 150 MG PO MONTHLY LAST TAKEN OCTOBER 08, 2015 02/10/15 Sucralfate (CARAFATE) 1 Gm Tablet, 1 GM PO BID 01/12/15 Pantoprazole Sodium* (PROTONIX) 40 Mg Tablet.dr, 40 MG PO BID 11/06/13 Levothyroxine Sodium (LEVOTHYROXINE SODIUM) 25 Mcg Tablet, 25 MCG PO QAM 11/27/12 Medications in the ED Ondansetron HCl 4 mg ONCE ONCE PO Last administered on 12/23/19at 19:09; Admin Dose 4 MG; Start 12/23/19 at 19:15; Stop 12/23/19 at 19:16; Status DC Acetaminophen/ Butalbital/ Caffeine 1 ea ONCE ONCE PO Last administered on 12/23/19at 19:09; Admin Dose 1 EA; Start 12/23/19 at 19:15; Stop 12/23/19 at 19:16; Status DC SUSY HILLIARD MD Dec 23, 2019 20:14
[2019-12-23] MEDS ORDERED: KETOROLAC TROMETHAMINE 30 MG/ML VIAL IV STA (20:19)
[2019-12-23] MEDS ORDERED: DIPHENHYDRAMINE HCL INJ 50 MG/ML VIAL IV ONE (20:30)
[2019-12-23] MEDS ORDERED: METOCLOPRAMIDE HCL 10 MG/2ML VIAL IV ONE (20:30)
[2019-12-23] MEDS ORDERED: SODIUM CHLORIDE 0.9% 1000ML 1,000 ML IV ONE (20:30)
[2019-12-23 20:49] LABS: BASOPHILS % 0.5 % (0.0-1.0); EOSINOPHILS # (AUTO) 0.2 (0.0-0.4); HEMATOCRIT 38.7 % (34.2-44.1); HEMOGLOBIN 12.2 g/dL (12.0-16.0); LYMPHOCYTES # (AUTO) 2.8 (1.0-3.2); LYMPHOCYTES % 33.8 % (18.0-39.1); MEAN CORPUSCULAR HEMOGLOBIN 28.7 pg (28-32); MEAN CORPUSCULAR HGB CONC 31.5 g/dL (31-35); MEAN CORPUSCULAR VOLUME 91.1 fL (81-99); MONOCYTES # (AUTO) 0.4 (0.2-0.8); MONOCYTES % 5.1 % (4.4-11.3); NEUTROPHILS # (AUTO) 4.7 (2.1-6.9); NEUTROPHILS % 57.5 % (38.7-80.0); PLATELET COUNT 381 x10e3/uL (140-360); RED BLOOD COUNT 4.25 x10e6/uL (3.6-5.1); RED CELL DISTRIBUTION WIDTH 12.5 % (11.7-14.4)
[2019-12-23 21:06] LABS: ANION GAP 15.9 mmol/L (8-16); CALCIUM 9.6 mg/dL (8.4-10.2); CREATININE, SERUM 1.49 mg/dL (0.57-1.11); POTASSIUM 3.9 mmol/L (3.5-5.1)
[2019-12-23 22:30] VITALS: BP 108/74
[2019-12-25] MEDS ORDERED: SUMATRIPTAN SUC25 MG PO (16:55)
[2019-12-25] MEDS ORDERED: LEXAPRO20 MG PO (16:55)
[2019-12-25] MEDS ORDERED: CRO-MAN-ZIN TA1 EACH PO (16:55)
== END 2019-12-23 22:36 | disposition home or self-care (01) ==
LOC: ER 19:12
DX: G43.909 Migraine, unspecified, not intractable, without status migrainosus (principal); R50.9 Fever, unspecified; E11.9 Type 2 diabetes mellitus without complications; K21.9 Gastro-esophageal reflux disease without esophagitis; Z98.84 Bariatric surgery status
CPT/HCPCS: 36415; 80048; 85025; 99283; J1200; J1885; J2765; J7030; Q0162

== ENCOUNTER → 2020-01-02 | Day surgery (SDC) | payer OTHER ==
[2019-12-28 13:22] LABS: BASOPHILS % 0.6 % (0.0-1.0); EOSINOPHILS # (AUTO) 0.1 (0.0-0.4); EOSINOPHILS % 1.6 % (0.0-6.0); HEMATOCRIT 35.7 % (34.2-44.1); HEMOGLOBIN 11.3 g/dL (12.0-16.0); LYMPHOCYTES # (AUTO) 2.7 (1.0-3.2); LYMPHOCYTES % 39.6 % (18.0-39.1); MEAN CORPUSCULAR HEMOGLOBIN 29.3 pg (28-32); MEAN CORPUSCULAR HGB CONC 31.7 g/dL (31-35); MEAN CORPUSCULAR VOLUME 92.5 fL (81-99); MONOCYTES # (AUTO) 0.4 (0.2-0.8); MONOCYTES % 5.9 % (4.4-11.3); NEUTROPHILS # (AUTO) 3.5 (2.1-6.9); NEUTROPHILS % 51.3 % (38.7-80.0); PLATELET COUNT 325 x10e3/uL (140-360); RED BLOOD COUNT 3.86 x10e6/uL (3.6-5.1); RED CELL DISTRIBUTION WIDTH 12.5 % (11.7-14.4)
[2019-12-28 13:38] LABS: INR 0.89; PROTHROMBIN TIME 12.5 seconds (11.9-14.5)
[2019-12-28 13:39] LABS: PARTIAL THROMBOPLASTIN TIME 24.1 seconds (23.8-35.5)
[2019-12-28 13:42] LABS: ANION GAP 14.2 mmol/L (8-16); CALCIUM 9.9 mg/dL (8.4-10.2); CREATININE, SERUM 1.29 mg/dL (0.57-1.11)
[2019-12-28 13:44] LABS: POTASSIUM 5.2 mmol/L (3.5-5.1)
[~2020-01-02] MED LIST changes: +ACETAMINOPHEN 1000 MG/100 ML IV ONE; +BACITRACIN 50,000 UNIT VIAL ONE; +CEFAZOLIN SOD 1 GM/NS 50ML 100 ML IV ONE; +CRO-MAN-ZIN TA1 EACH PO; +DEXAMETHASONE SOD PHOS INJ 4 MG/ML VIAL ONE; +FENTANYL CITRATE/PF 100MCG/2 ML INJ ONE; +HYDROCODONE/APAP 10MG-325MG TAB ONE; +IBUPROFEN 800MG/ 200ML 200 ML IV ONE; +LEXAPRO20 MG PO; +LIDOCAINE HCL 2% LOCAL INJ 5 ML SDV VIAL INJ ONE; +ONDANSETRON HCL INJ 2MG/ML 2ML 2 MG/ML VIAL ONE; +PROPOFOL IV EMULSION 10 MG/ML 20 ML VIAL ONE; +ROPIVACAINE 246.25 MG, EPINEPHRINE HCL 1:1000 1ML 0.5 MG, CLONIDINE HCL 0.08 MG, KETORO... INJ ONE; +SEVOFLURANE INHAL SOLN 250 ML PEN BTL ONE; +SUMATRIPTAN SUC25 MG PO; +TRANEXAMIC ACID 1,000 MG/10 ML ML ONE
--- NOTE | 2020-01-02 09:13 | Diagnostic Imaging Report ---
EXAMINATION: KNEE LEFT THREE VIEWS INDICATION: Postoperative COMPARISON: None FINDINGS: AP, lateral and oblique images of the left knee demonstrate postoperative findings of left total knee replacement. Alignment appears anatomic. No unexpected fracture. Postoperative soft tissue emphysema. Surgical skin kaleigh in place. IMPRESSION: Anatomic alignment status post left total knee replacement. Signed by: Tri Cooney MD on 01/02/2020 9:10 AM
[2020-01-02 14:30] VITALS: BP 117/54
--- NOTE | 2020-01-02 19:00 | Operative Report ---
DATE OF PROCEDURE: 01/02/2020 SURGEON: ERIKA SINGH MD LOCATION: Place of surgery is [facility]. HISTORY: Ms. Guillen is a well-known patient of mine, I have been seeing for several years. Most recently, the patient continued to have a chronic and ongoing and progressive pain of her left knee with failed conservative treatment. The patient underwent multiple injections in the past along with anti-inflammatories, home therapy program, all of which have failed to resolve her pain symptoms fully and completely. The patient elected to forgo any further conservative treatment and proceed on with a left total knee arthroplasty. The risks and benefits of surgery have been outlined to her in Orthopedic Clinic as well as reviewed again in the preoperative holding area prior to her surgery, consisting, but not limited to the following: Infection, blood loss, nerve, vessel or tendon injury, DVT, ongoing pain, stiffness, nerve injury including the peroneal palsy and/or neurapraxia, possible leg length discrepancy, ongoing pain, possible need for additional surgery. The patient agreed. The left knee was marked by myself and the consent was confirmed. The patient was then given a preoperative regional block by Anesthesia and then brought back to the operative suite. Time-out was taken for Ms. Charleen Guillen for total knee arthroplasty of her left knee. All were in agreement including nursing staff, Anesthesia, and myself. The patient was then given successful general intubation anesthetic and then transferred over to the operative table. A nonsterile tourniquet was placed high in the left upper thigh and left lower extremity was then sterilely prepped and draped in the usual standard fashion. The limb was exsanguinated and the tourniquet was inflated to approximately 225 to 250 mmHg. The initial 10 Bard-Ismael blade was used to make the initial skin incision starting from the superior pole of the patella extending down to the tibial tuberosity. A second 10 Bard-Ismael blade was used to make a medial arthrotomy. Degenerative joint fluid was suctioned out. The patella was then carefully everted and the knee carefully flexed up, protecting the patellar tendon at all times. The remnant of medial and lateral meniscus were resected. The patient was noted to have marked cartilage loss of both the medial and patellofemoral compartments as well as minimal cartilage loss of the patellofemoral joint of both medial and lateral facet and trochlear groove. Bony osteophytes were removed. The medial and lateral meniscus were resected. Medial and lateral retractors were placed in protecting the medial and lateal collateral ligament all times as well as the lateral peroneal nerve. FEMORAL COMPONENT: The drill guide was then used to make the entry point for the intramedullary femoral guide, which was placed in. A resection cut was made of the distal femur in 3 degrees of external rotation and 5 degrees of valgus. The femur was then sized to a #3, and 4 in 1 cutting block was impacted and then the anterior and posterior cuts were completed using an oscillating saw and then anterior and posterior chamfer cuts. The #3 CR left femur was then trialed and had excellent fit circumferentially. TIBIAL COMPONENT: The extramedullary tibial guide was placed in. It was placed in alignment with regard to the proximal 3rd of the tibial tuberosity, the tibial shaft, the distal middle ankle joint and 2nd ray. Resection cut was made off the proximal tibia, measured of the low side with a posterior 5 degree slope. The tibia was measured to be a size #3 and #3 universal tibial baseplate was placed in the correct rotation and alignment, was confirmed using 4 alignment rods proximally and distally with the knee at full extension. The central punch was then completed as well as the keel. A trial reduction was carried out with a 9, 11, and 13 mm poly. The 9 mm poly gave the most stable fit allowing the knee at full extension with flexion well above 130 degrees. The patient had no varus or valgus or anterior posterior instability. PATELLAR COMPONENT: The patella was resected to approximately 14 to 16 mm. The patella was sized to a #29 and a 29 asymmetric patella was correctly lateralized and the PEG holes were drilled. Upon range of motion testing, the patella had excellent patellofemoral tracking throughout the entire arc of motion with a flexion well above 130 degrees, extension up to 0. The trial components were removed. Copious irrigation was carried out with 6 to 9 L of antibiotic saline solution. Antibiotic cement was prepared on the back table and the final components were placed in consisting of [place] Triathlon #3 CR left femur, #3 universal tibial baseplate with a 29 asymmetric patella with a 3 x 9 mm CS poly insert. The final components were placed in after the cement was allowed to harden with the knee at full extension. Copious irrigation carried out one last time. Final counts found to be correct. Upon which time, all loose bodies were removed. One final irrigation was carried out and the tourniquet was released and there was no acute pulsatile bleeding noted. Capillary refill was brisk. After the initial irrigation and prior to placing the final prosthesis an intra-articular posterior capsular and intracapsular RUSSELL injection was completed with 100 mL a cocktail mixture in the usual standard fashion. Tourniquet had been released and there was no acute pulsatile bleeding noted. The medial arthrotomy was then closed using 5 Ethibond. Deep layer closure of 0 Vicryl, 2-0 Vicryl. Skin was reapproximated with kaleigh and the patient is placed in Xeroform compressive dressing and subsequently transferred to PACU after successful extubation. PREOPERATIVE DIAGNOSIS: Degenerative joint disease of the left knee, tricompartmental. POSTOPERATIVE DIAGNOSIS: Tricompartmental degenerative joint disease of the left knee. PROCEDURES: 1. Left total knee arthroplasty with the following components: a. A [place] Triathlon CR left size #3 CR left femur, #3 universal tibial baseplate, a 29 asymmetrical patella, a 3 x 9 mm CS poly insert. 2. Intra-articular, intracapsular RUSSELL injection of the left knee. ANESTHESIA: Regional block with general intubation anesthetic. ESTIMATED BLOOD LOSS: Less than 100 mL. SPECIMENS: Bones and soft tissue. COMPLICATIONS: None. CONDITION: Stable to PACU. The patient was seen in PACU, dressings were clean and dry. Capillary refills are brisk. Pain is well controlled. The intraoperative findings were reviewed and discussed with her . We will see how the patient does with initial postoperative physical therapy and then a 2nd therapy session in the following afternoon and if she is stable to be discharged home. Outpatient had already been established and confirmed with the patient. She is discharged home with [place] 10, Keflex, as well as Lovenox. She was discharged home with bilateral TEDs, compression stockings and incentive spirometry. Dressing and wound care instructions were discussed with her as well along with nursing staff. The patient followup in 2 weeks. MD DEVI PRESTON/PARMINDER /[id number]
== END | disposition home or self-care (01) ==
LOC: OR 05:11
PROVIDERS: ATTEND Orthopaedic Surgery
DX: M17.12 Unilateral primary osteoarthritis, left knee (principal); S83.412A Sprain of medial collateral ligament of left knee, initial encounter; M25.762 Osteophyte, left knee; M22.42 Chondromalacia patellae, left knee; G47.33 Obstructive sleep apnea (adult) (pediatric); E11.22 Type 2 diabetes mellitus with diabetic chronic kidney disease; I12.9 Hypertensive chronic kidney disease with stage 1 through stage 4 chronic kidney disease, or unspecified chronic kidney disease; N18.9 Chronic kidney disease, unspecified; E66.01 Morbid (severe) obesity due to excess calories; F17.210 Nicotine dependence, cigarettes, uncomplicated; Z88.8 Allergy status to other drugs, medicaments and biological substances; Z01.810 Encounter for preprocedural cardiovascular examination; Z01.812 Encounter for preprocedural laboratory examination; Z11.59 Encounter for screening for other viral diseases; Z79.4 Long term (current) use of insulin; Z79.84 Long term (current) use of oral hypoglycemic drugs; Z68.34 Body mass index [BMI] 34.0-34.9, adult
CPT/HCPCS: 27447; 36415 ×2; 73562; 80048; 82948; 85025; 85610; 85730; 86850; 86900; 86920; 93005; 97110; 97116; 97139; 97161; 97530; C1713 ×2; C1776 ×2; J0131; J0171; J0690; J1100; J1885; J2001; J2405; J2704; J2795; J3010; U0002

== ENCOUNTER → 2020-01-05 | Outpatient (RCR) | payer MEDICARE ==
[~2020-01-05] MED LIST changes: -ACETAMINOPHEN 1000 MG/100 ML IV ONE; -BACITRACIN 50,000 UNIT VIAL ONE; -CEFAZOLIN SOD 1 GM/NS 50ML 100 ML IV ONE; -DEXAMETHASONE SOD PHOS INJ 4 MG/ML VIAL ONE; -FENTANYL CITRATE/PF 100MCG/2 ML INJ ONE; -HYDROCODONE/APAP 10MG-325MG TAB ONE; -IBUPROFEN 800MG/ 200ML 200 ML IV ONE; -LIDOCAINE HCL 2% LOCAL INJ 5 ML SDV VIAL INJ ONE; -ONDANSETRON HCL INJ 2MG/ML 2ML 2 MG/ML VIAL ONE; -PROPOFOL IV EMULSION 10 MG/ML 20 ML VIAL ONE; -ROPIVACAINE 246.25 MG, EPINEPHRINE HCL 1:1000 1ML 0.5 MG, CLONIDINE HCL 0.08 MG, KETORO... INJ ONE; -SEVOFLURANE INHAL SOLN 250 ML PEN BTL ONE; -TRANEXAMIC ACID 1,000 MG/10 ML ML ONE
== END ==
LOC: PT 01-03 10:35
PROVIDERS: ATTEND Orthopaedic Surgery
DX: M17.12 Unilateral primary osteoarthritis, left knee (principal); M22.42 Chondromalacia patellae, left knee; S83.412A Sprain of medial collateral ligament of left knee, initial encounter; M25.462 Effusion, left knee; E66.01 Morbid (severe) obesity due to excess calories; Z68.39 Body mass index [BMI] 39.0-39.9, adult

== ENCOUNTER → 2020-01-19 | Day surgery (SDC) | payer MEDICARE, OTHER ==
[~2020-01-19] MED LIST changes: +FENTANYL CITRATE/PF 100MCG/2 ML INJ ONE; +MIDAZOLAM HCL 2 MG/2 ML VIAL ONE; +PANTOPRAZOLE 40 MG 10ML VIAL ONE; +PROPOFOL IV EMULSION 10 MG/ML 20 ML VIAL ONE
[2020-01-19 12:05] VITALS: BP 117/58
--- NOTE | 2020-01-19 12:25 | Operative Report ---
DATE OF PROCEDURE: 01/19/2020 SURGEON: John Cuevas MD PROCEDURE: EGD with biopsies. INDICATIONS FOR EGD: Acid reflux, bloating. MEDICATIONS: The patient was done under MAC, please see anesthesiologist's note. PROCEDURE IN DETAIL: With the patient in left lateral decubitus position, a flexible fiberoptic Olympus gastroscope was introduced into the esophagus under direct visualization without any difficulty. The esophagus appeared to be within normal limits. The scope was then advanced with ease into the stomach and the patient is status post gastric sleeve. Mucosa overlying the antrum revealed some patchy atrophic changes also and biopsies were obtained. The mucosa overlying the body, there was diffuse erythema and moderate edema, and biopsies were obtained, and sent to stain for H. pylori. The pylorus was of normal contour and shape, it was intubated with ease and the scope was advanced all the way to the second portion of the duodenum. Biopsies were obtained from the proximal second portion and the duodenal bulb to rule out sprue. The scope was then withdrawn back into the colon, it was retroflexed and postoperative changes were noted. The scope was then straightened out, it was subsequently withdrawn. The patient tolerated the procedure well. IMPRESSION: 1. Normal esophagus. 2. Status post gastric sleeve. 3. Gastritis, biopsied, biopsies sent to stain for H. pylori. 4. Rule out sprue. PLAN: 1. Follow up histology. 2. Continue Protonix 40 mg one p.o. a.c. b.i.d. John Cuevas [place] [facility] [place] /[id number] cc: Jeffrey Culver DO
[2020-01-24 07:15] LABS: ENDOMYSIAL ANTIBODIES, IGA Negative (Negative)
== END | disposition home or self-care (01) ==
LOC: ENDO 07:22
PROVIDERS: ATTEND Internal Medicine Gastroenterology
DX: K29.60 Other gastritis without bleeding (principal); Z86.010 Personal history of colon polyps; K20.8 Other esophagitis; K21.9 Gastro-esophageal reflux disease without esophagitis; R43.8 Other disturbances of smell and taste; G47.33 Obstructive sleep apnea (adult) (pediatric); E11.9 Type 2 diabetes mellitus without complications; E03.9 Hypothyroidism, unspecified; Z88.6 Allergy status to analgesic agent; Z91.048 Other nonmedicinal substance allergy status; Z01.812 Encounter for preprocedural laboratory examination; Z11.59 Encounter for screening for other viral diseases; Z79.4 Long term (current) use of insulin; Z79.84 Long term (current) use of oral hypoglycemic drugs; Z68.33 Body mass index [BMI] 33.0-33.9, adult; Z87.891 Personal history of nicotine dependence
CPT/HCPCS: 36415; 43239; 82784; 82948; 83516; 86256; C9113; J2704; U0002; J2250; J3010

== ENCOUNTER → 2020-02-05 | Outpatient (RCR) | payer MEDICARE ==
[~2020-02-05] MED LIST changes: -FENTANYL CITRATE/PF 100MCG/2 ML INJ ONE; -MIDAZOLAM HCL 2 MG/2 ML VIAL ONE; -PANTOPRAZOLE 40 MG 10ML VIAL ONE; -PROPOFOL IV EMULSION 10 MG/ML 20 ML VIAL ONE
== END ==
LOC: PT 01-08 12:55
PROVIDERS: ATTEND Orthopaedic Surgery
DX: M17.12 Unilateral primary osteoarthritis, left knee (principal); M22.42 Chondromalacia patellae, left knee; S83.412A Sprain of medial collateral ligament of left knee, initial encounter; M25.462 Effusion, left knee; E66.01 Morbid (severe) obesity due to excess calories; Z68.39 Body mass index [BMI] 39.0-39.9, adult
CPT/HCPCS: 97139

== ENCOUNTER 2020-03-05 10:46 | Outpatient (RCR) | payer MEDICARE | END 2020-03-06 | LOC: PT 10:46 | PROVIDERS: ATTEND Orthopaedic Surgery | DX: M17.12 Unilateral primary osteoarthritis, left knee (principal); M22.42 Chondromalacia patellae, left knee; S83.412A Sprain of medial collateral ligament of left knee, initial encounter; M25.462 Effusion, left knee; E66.01 Morbid (severe) obesity due to excess calories; Z68.39 Body mass index [BMI] 39.0-39.9, adult | CPT/HCPCS: 97139 ==

== ENCOUNTER 2020-04-03 08:33 | Outpatient (RCR) | payer MEDICARE | END 2020-04-06 | LOC: PT 08:33 | PROVIDERS: ATTEND Specialist | DX: M17.12 Unilateral primary osteoarthritis, left knee (principal); M22.42 Chondromalacia patellae, left knee; S83.412A Sprain of medial collateral ligament of left knee, initial encounter; M25.462 Effusion, left knee; E66.01 Morbid (severe) obesity due to excess calories; Z68.39 Body mass index [BMI] 39.0-39.9, adult | CPT/HCPCS: 97139 ==

== ENCOUNTER 2020-04-05 08:01 | Outpatient (RCR) | payer MEDICARE | END 2020-04-06 | LOC: PT 08:01 | PROVIDERS: ATTEND Specialist | DX: M70.62 Trochanteric bursitis, left hip (principal); M25.552 Pain in left hip; M62.81 Muscle weakness (generalized); R26.2 Difficulty in walking, not elsewhere classified ==

== ENCOUNTER 2020-04-19 09:35 | Outpatient (RCR) | payer MEDICARE | END 2020-05-06 | LOC: PT 09:35 | PROVIDERS: ATTEND Specialist | DX: M17.12 Unilateral primary osteoarthritis, left knee (principal); M22.42 Chondromalacia patellae, left knee; S83.412A Sprain of medial collateral ligament of left knee, initial encounter; M25.462 Effusion, left knee; E66.01 Morbid (severe) obesity due to excess calories; Z68.39 Body mass index [BMI] 39.0-39.9, adult | CPT/HCPCS: 97139 ==

== ENCOUNTER → 2020-05-15 | Outpatient (CLI) | payer MEDICARE | LOC: MRI 07:50 | PROVIDERS: ATTEND Specialist | DX: M70.62 Trochanteric bursitis, left hip (principal); M25.552 Pain in left hip ==

== ENCOUNTER → 2020-11-19 | Outpatient (CLI) | payer MEDICARE ==
[~2020-11-19] MED LIST changes: +EFFEXOR XR150 MG PO
== END ==
LOC: US 07:20
PROVIDERS: ATTEND Internal Medicine Gastroenterology
DX: R11.0 Nausea (principal); R10.9 Unspecified abdominal pain; K29.60 Other gastritis without bleeding
CPT/HCPCS: 76700

== ENCOUNTER → 2020-11-25 | Day surgery (SDC) | payer MEDICARE ==
[~2020-11-25] MED LIST changes: +LIDOCAINE HCL 2% LOCAL INJ 5 ML SDV VIAL INJ ONE; +METOCLOPRAMIDE HCL 10 MG/2ML VIAL ONE; +PROPOFOL IV EMULSION 10 MG/ML 20 ML VIAL ONE
[2020-11-25 08:40] VITALS: BP 114/56
[2020-11-28 06:12] LABS: ENDOMYSIAL ANTIBODIES, IGA Negative (Negative)
== END | disposition home or self-care (01) ==
LOC: OR 05:43
PROVIDERS: ATTEND Internal Medicine Gastroenterology
DX: K29.60 Other gastritis without bleeding (principal); K20.90 Esophagitis, unspecified without bleeding; Z98.84 Bariatric surgery status; K58.9 Irritable bowel syndrome, unspecified; K21.9 Gastro-esophageal reflux disease without esophagitis; G47.33 Obstructive sleep apnea (adult) (pediatric); K76.0 Fatty (change of) liver, not elsewhere classified; E78.5 Hyperlipidemia, unspecified; E03.9 Hypothyroidism, unspecified; E11.9 Type 2 diabetes mellitus without complications; G43.909 Migraine, unspecified, not intractable, without status migrainosus; F32.9 Major depressive disorder, single episode, unspecified; Z88.6 Allergy status to analgesic agent; Z91.048 Other nonmedicinal substance allergy status; Z01.810 Encounter for preprocedural cardiovascular examination; Z79.4 Long term (current) use of insulin; Z68.31 Body mass index [BMI] 31.0-31.9, adult; Z87.891 Personal history of nicotine dependence
CPT/HCPCS: 36415; 43239; 82784; 82948; 83516; 86256; 93005; C9113; J2001; J2704; J2765

== ENCOUNTER → 2021-07-28 | Day surgery (SDC) | payer MEDICARE ==
[2021-07-24 10:58] LABS: CALCIUM 9.4 mg/dL (8.4-10.2); CREATININE, SERUM 1.1 mg/dL (0.57-1.11)
[~2021-07-28] MED LIST changes: +COLESTIPOL HCL1 GM PO; +DEXAMETHASONE SOD PHOS INJ 4 MG/ML SDV ONE; +DEXTROSE 50% SYRINGE 50 ML IV ONE; +EPINEPHRINE 1 MG/ML 30ML VIAL ONE; +FENTANYL CITRATE/PF 100MCG/2 ML INJ ONE; +KETOROLAC TROMETHAMINE 30 MG/ML VIAL ONE; +LAMICTAL5 MG PO; +MEPERIDINE HCL INJ 25 MG/ML VIAL ONE; -METOCLOPRAMIDE HCL 10 MG/2ML VIAL ONE; +MIDAZOLAM HCL 2 MG/2 ML VIAL ONE; +ONDANSETRON HCL INJ 2MG/ML 2ML 2 MG/ML VIAL ONE; +POVIDONE IODINE 0.05% 0.05 % ML PO ONE; +ROCURONIUM BROMIDE 10 MG/ML 5ML VIAL IV ONE; +ROPIVACAINE 0.5% 5 MG/ML 30 ML SDV ONE; +SEVOFLURANE INHAL SOLN 250 ML PEN BTL ONE
[2021-07-28 12:15] VITALS: BP 120/62
== END | disposition home or self-care (01) ==
LOC: OR 07:28
PROVIDERS: ATTEND Specialist
DX: S43.422A Sprain of left rotator cuff capsule, initial encounter (principal); M75.52 Bursitis of left shoulder; G47.33 Obstructive sleep apnea (adult) (pediatric); E11.9 Type 2 diabetes mellitus without complications; E03.9 Hypothyroidism, unspecified; K29.70 Gastritis, unspecified, without bleeding; K21.9 Gastro-esophageal reflux disease without esophagitis; K85.90 Acute pancreatitis without necrosis or infection, unspecified; F99 Mental disorder, not otherwise specified; W19.XXXA Unspecified fall, initial encounter; Z88.6 Allergy status to analgesic agent; Z91.048 Other nonmedicinal substance allergy status; Z01.810 Encounter for preprocedural cardiovascular examination; Z01.812 Encounter for preprocedural laboratory examination; Z20.822 Contact with and (suspected) exposure to COVID-19; Z79.4 Long term (current) use of insulin; Z79.899 Other long term (current) drug therapy; Z68.31 Body mass index [BMI] 31.0-31.9, adult
CPT/HCPCS: 36415; 80048; 93005; J0690; J1100; J1885; J2001; J2175; J2250; J2405; J2795; J3010; J7799; U0002

== ENCOUNTER 2021-09-29 09:02 | Outpatient (RCR) | payer MEDICARE ==
[~2021-09-29 09:02] MED LIST changes: -DEXAMETHASONE SOD PHOS INJ 4 MG/ML SDV ONE; -DEXTROSE 50% SYRINGE 50 ML IV ONE; -EPINEPHRINE 1 MG/ML 30ML VIAL ONE; -FENTANYL CITRATE/PF 100MCG/2 ML INJ ONE; -KETOROLAC TROMETHAMINE 30 MG/ML VIAL ONE; -LIDOCAINE HCL 2% LOCAL INJ 5 ML SDV VIAL INJ ONE; -MEPERIDINE HCL INJ 25 MG/ML VIAL ONE; -MIDAZOLAM HCL 2 MG/2 ML VIAL ONE; -ONDANSETRON HCL INJ 2MG/ML 2ML 2 MG/ML VIAL ONE; -POVIDONE IODINE 0.05% 0.05 % ML PO ONE; -PROPOFOL IV EMULSION 10 MG/ML 20 ML VIAL ONE; -ROCURONIUM BROMIDE 10 MG/ML 5ML VIAL IV ONE; -ROPIVACAINE 0.5% 5 MG/ML 30 ML SDV ONE; -SEVOFLURANE INHAL SOLN 250 ML PEN BTL ONE
== END 2021-10-04 ==
LOC: PT 09:02
PROVIDERS: ATTEND Family Medicine
DX: Z47.89 Encounter for other orthopedic aftercare (principal); S46.012D Strain of muscle(s) and tendon(s) of the rotator cuff of left shoulder, subsequent encounter; M25.512 Pain in left shoulder; M25.612 Stiffness of left shoulder, not elsewhere classified; M62.81 Muscle weakness (generalized)

== ENCOUNTER 2021-10-23 13:00 | Outpatient (RCR) | payer MEDICARE ==
[2021-10-24] MEDS ORDERED: AZITHROMYCIN250 MG PO (13:33)
[2021-10-24] MEDS ORDERED: BENZONATATE100 MG PO (13:44)
== END 2021-11-04 ==
LOC: PT 13:00
PROVIDERS: ATTEND Physician Assistant
DX: Z47.89 Encounter for other orthopedic aftercare (principal); S46.012D Strain of muscle(s) and tendon(s) of the rotator cuff of left shoulder, subsequent encounter; M25.512 Pain in left shoulder; M25.612 Stiffness of left shoulder, not elsewhere classified; M62.81 Muscle weakness (generalized)

== ENCOUNTER 2021-10-24 11:08 | Emergency (ER) | payer MEDICARE ==
[~2021-10-24] VITALS: Ht 160 cm; Wt 82.6 kg
[2021-10-24] MEDS ORDERED: AZITHROMYCIN250 MG PO (13:33)
[2021-10-24] MEDS ORDERED: BENZONATATE100 MG PO (13:44)
== END 2021-10-24 13:59 | disposition home or self-care (01) ==
LOC: ER 11:44
DX: R50.9 Fever, unspecified (principal); U07.1 COVID-19; R05.9 Cough, unspecified; E11.9 Type 2 diabetes mellitus without complications; E03.9 Hypothyroidism, unspecified; F32.A Depression, unspecified; K21.9 Gastro-esophageal reflux disease without esophagitis; M85.88 Other specified disorders of bone density and structure, other site; Z98.84 Bariatric surgery status
CPT/HCPCS: 71045; 83518; 87070; 99284; U0002

== ENCOUNTER 2021-12-03 11:00 | Outpatient (RCR) | payer MEDICARE ==
[~2021-12-03 11:00] MED LIST changes: +AZITHROMYCIN250 MG PO; +BENZONATATE100 MG PO
== END 2021-12-04 ==
LOC: PT 11:00
PROVIDERS: ATTEND Family Medicine
DX: Z47.89 Encounter for other orthopedic aftercare (principal); S86.012D Strain of left Achilles tendon, subsequent encounter; M25.512 Pain in left shoulder; M25.612 Stiffness of left shoulder, not elsewhere classified; M62.81 Muscle weakness (generalized)
CPT/HCPCS: 97139

== ENCOUNTER 2021-12-05 10:17 | Outpatient (RCR) | payer MEDICARE | END 2022-01-04 | LOC: PT 10:17 | PROVIDERS: ATTEND Family Medicine | DX: Z47.89 Encounter for other orthopedic aftercare (principal); S46.012D Strain of muscle(s) and tendon(s) of the rotator cuff of left shoulder, subsequent encounter; M25.512 Pain in left shoulder; M25.612 Stiffness of left shoulder, not elsewhere classified; M62.81 Muscle weakness (generalized) ==

== ENCOUNTER → 2022-01-16 | Day surgery (SDC) | payer MEDICARE ==
[2022-01-13 14:14] LABS: ANION GAP 15.7 mmol/L (8-16); BLOOD UREA NITROGEN 23 mg/dL (7-26); BUN/CREATININE RATIO 15 (6-25); CALCIUM 9.4 mg/dL (8.4-10.2); CARBON DIOXIDE 29 mmol/L (22-29); CHLORIDE 100 mmol/L (98-107); GLUCOSE 272 mg/dL (74-118); POTASSIUM 4.7 mmol/L (3.5-5.1); SODIUM 140 mmol/L (136-145)
[~2022-01-16] MED LIST changes: +FENTANYL CITRATE/PF 100MCG/2 ML INJ ONE; +HYOSCYAMINE SULFATE 0.5 MG/ML INJ ONE; +MIDAZOLAM HCL 2 MG/2 ML VIAL ONE; +PROPOFOL IV EMULSION 10 MG/ML 20 ML VIAL ONE
[2022-01-16 11:24] VITALS: BP 120/76
== END | disposition home or self-care (01) ==
LOC: OR 07:28
PROVIDERS: ATTEND Internal Medicine Gastroenterology
DX: K29.60 Other gastritis without bleeding (principal); K57.30 Diverticulosis of large intestine without perforation or abscess without bleeding; K63.5 Polyp of colon; K62.1 Rectal polyp; K64.8 Other hemorrhoids; Z86.010 Personal history of colon polyps; E11.9 Type 2 diabetes mellitus without complications; E03.9 Hypothyroidism, unspecified; K21.9 Gastro-esophageal reflux disease without esophagitis; G47.33 Obstructive sleep apnea (adult) (pediatric); F41.9 Anxiety disorder, unspecified; F32.A Depression, unspecified; Z68.34 Body mass index [BMI] 34.0-34.9, adult; F17.290 Nicotine dependence, other tobacco product, uncomplicated; G43.909 Migraine, unspecified, not intractable, without status migrainosus; E78.00 Pure hypercholesterolemia, unspecified; Z99.81 Dependence on supplemental oxygen; Z98.84 Bariatric surgery status; Z90.49 Acquired absence of other specified parts of digestive tract; Z01.810 Encounter for preprocedural cardiovascular examination; Z01.812 Encounter for preprocedural laboratory examination; Z20.822 Contact with and (suspected) exposure to COVID-19; Z88.8 Allergy status to other drugs, medicaments and biological substances; Z91.048 Other nonmedicinal substance allergy status; Z79.84 Long term (current) use of oral hypoglycemic drugs; Z79.4 Long term (current) use of insulin
CPT/HCPCS: 0223U; 36415 ×2; 45380; 80048; 82948; 93005; J1980; J2250; J2704; J3010; 45378; 45385

== ENCOUNTER → 2022-10-23 | Day surgery (SDC) | payer MEDICARE ==
[~2022-10-23] MED LIST changes: -FENTANYL CITRATE/PF 100MCG/2 ML INJ ONE; -HYOSCYAMINE SULFATE 0.5 MG/ML INJ ONE; +LACTATED RINGER'S 1,000 ML ONE; +LIDOCAINE HCL 2% LOCAL INJ 5 ML SDV VIAL INJ ONE; -MIDAZOLAM HCL 2 MG/2 ML VIAL ONE
[2022-10-23 08:05] VITALS: BP 132/71; PULSE 76; RESP 18; O2SAT 96
[2022-10-27 06:12] LABS: ENDOMYSIAL ANTIBODIES, IGA Negative (Negative)
== END | disposition home or self-care (01) ==
LOC: OR 05:30
PROVIDERS: ATTEND Internal Medicine Gastroenterology
DX: K29.70 Gastritis, unspecified, without bleeding (principal); K20.90 Esophagitis, unspecified without bleeding; Z98.84 Bariatric surgery status; K31.89 Other diseases of stomach and duodenum; K21.9 Gastro-esophageal reflux disease without esophagitis; Z71.3 Dietary counseling and surveillance; G47.33 Obstructive sleep apnea (adult) (pediatric); E11.9 Type 2 diabetes mellitus without complications; E03.9 Hypothyroidism, unspecified; E78.00 Pure hypercholesterolemia, unspecified; G43.909 Migraine, unspecified, not intractable, without status migrainosus; F32.A Depression, unspecified; F17.290 Nicotine dependence, other tobacco product, uncomplicated; Z88.6 Allergy status to analgesic agent; Z91.048 Other nonmedicinal substance allergy status; Z01.810 Encounter for preprocedural cardiovascular examination; Z79.4 Long term (current) use of insulin; Z79.84 Long term (current) use of oral hypoglycemic drugs; Z79.899 Other long term (current) drug therapy; Z68.32 Body mass index [BMI] 32.0-32.9, adult; Z87.19 Personal history of other diseases of the digestive system
CPT/HCPCS: 36415; 43239; 82784; 82948; 83516; 86256; 93005; C9113; J2001; J2704; J7121

== ENCOUNTER → 2022-10-29 | Outpatient (CLI) | payer MEDICARE ==
[~2022-10-29] MED LIST changes: -LACTATED RINGER'S 1,000 ML ONE; -LIDOCAINE HCL 2% LOCAL INJ 5 ML SDV VIAL INJ ONE; -PROPOFOL IV EMULSION 10 MG/ML 20 ML VIAL ONE
== END ==
LOC: US 07:34
PROVIDERS: ATTEND Nurse Practitioner
DX: R10.12 Left upper quadrant pain (principal); R11.2 Nausea with vomiting, unspecified; R12 Heartburn
CPT/HCPCS: 76700; 76856

== ENCOUNTER → 2023-05-07 | Outpatient (REF) | payer MEDICARE | LOC: DX 13:13 | PROVIDERS: ATTEND Family Medicine | DX: M85.88 Other specified disorders of bone density and structure, other site (principal) | CPT/HCPCS: 77080 ==

== ENCOUNTER → 2024-12-07 | Day surgery (SDC) | payer MEDICARE ==
[2024-12-04 10:37] LABS: BASOPHILS % 0.4 % (0.0-1.0); EOSINOPHILS % 2.2 % (0.0-6.0); LYMPHOCYTES % 30.7 % (18.0-39.1); MONOCYTES % 5.5 % (4.4-11.3); NEUTROPHILS % 60.8 % (38.7-80.0); RED CELL DISTRIBUTION WIDTH 12.8 % (11.7-14.4)
[~2024-12-07] MED LIST changes: +ALL DAY ALLERGY10 MG; +AUSTEDO6 MG PO; +COLACE100 MG/10 PO; +DOXEPIN HC10 MG/1 ML PO; +FENTANYL CITRATE/PF 100MCG/2 ML INJ ONE; +GLUCAGON FOR INJ 1 MG VIAL ONE; +LASIX20 MG PO; +LIDOCAINE HCL 2% LOCAL INJ 5 ML SDV VIAL INJ ONE; +MUCOSA DM TABL1 EACH; +PROPOFOL IV EMULSION 10 MG/ML 20 ML VIAL ONE; +PROPOFOL IV EMULSION 50 ML IV ONE; +VITAMIN C1000 MG PO; +VRAYLAR1.5 MG PO
[2024-12-07] MEDS: LACTATED RINGER'S 1,000 ML ONE (07:18)
[2024-12-07 10:52] VITALS: TEMP 97.8
[2024-12-07 11:18] VITALS: BP 117/83; PULSE 65; RESP 18; O2SAT 100
== END | disposition home or self-care (01) ==
LOC: OR 06:56
PROVIDERS: ATTEND Internal Medicine Gastroenterology
DX: K29.70 Gastritis, unspecified, without bleeding (principal); Z86.0100 Personal history of colon polyps, unspecified; K31.89 Other diseases of stomach and duodenum; Z98.84 Bariatric surgery status; K58.9 Irritable bowel syndrome, unspecified; K64.8 Other hemorrhoids; G47.33 Obstructive sleep apnea (adult) (pediatric); E11.9 Type 2 diabetes mellitus without complications; E03.9 Hypothyroidism, unspecified; E78.5 Hyperlipidemia, unspecified; K21.9 Gastro-esophageal reflux disease without esophagitis; D64.9 Anemia, unspecified; G24.01 Drug induced subacute dyskinesia; Z71.89 Other specified counseling; M54.2 Cervicalgia; M54.9 Dorsalgia, unspecified; M06.9 Rheumatoid arthritis, unspecified; M19.90 Unspecified osteoarthritis, unspecified site; F32.A Depression, unspecified; F17.290 Nicotine dependence, other tobacco product, uncomplicated; Z88.6 Allergy status to analgesic agent; Z91.048 Other nonmedicinal substance allergy status; Z01.810 Encounter for preprocedural cardiovascular examination; Z01.812 Encounter for preprocedural laboratory examination; Z68.30 Body mass index [BMI] 30.0-30.9, adult; Z71.3 Dietary counseling and surveillance
CPT/HCPCS: 36415 ×2; 43239; 45378; 82948; 85025; 93005; J1610; J2003; J2470; J2704 ×2; J3010; J7121